=== PATIENT | female | born 1985 | race American Indian/Alaskan Native ===

== ENCOUNTER 2021-09-01 23:46 | Inpatient (IN) | payer SELFPAY ==
--- NOTE | 2021-09-02 07:37 | Emergency Department Report ---
ED General Adult HPI - General Chief complaint: Neuro Symptoms/Deficit Stated complaint: CHF/LEFTSIDE NUMBNESS Time Seen by Provider: 09/02/21 07:26 Source: patient, RN notes reviewed Mode of arrival: Ambulatory Limitations: No Limitations - History of Present Illness Initial comments: During the history and physical examination, I am chaperoned by Vik Tracy This is a 36-year-old female. She states that she is not . She has a history of congestive heart failure, and also pituitary abnormality. She typically sees a cash posting clerk by the name of Dr. Cabral, at [facility]. She does not know her ejection fraction. She presents to the ER today with a complaint of shortness of breath, cough, lower extremity swelling, production of pink frothy sputum, unintentional weight gain, and also complaint of nontraumatic left medial arm numbness, which starts at the elbow, and radiates proximally to her bicep, tricep, and left lateral chest wall. It does not radiate distally. Denies headache, neck pain, chest pain, abdominal pain, DVT/PE risk factors as well as urinary symptoms The subjective numbness started yesterday at around 10:00 PM -: Gradual Location: left, upper extremity Quality: other (Numb in the left upper extremity) Consistency: constant Improves with: rest Worsens with: movement - Related Data Home Medications Medication Instructions Recorded Confirmed Last Taken Benzonatate [Tessalon Perles] 100 mg PO Q8HR 09/02/21 09/02/21 09/01/21 Bromocriptine [Parlodel] 2.5 mg PO DAILY 09/02/21 09/02/21 09/01/21 Furosemide [Lasix] 40 mg PO 09/02/21 09/01/21 Lo Loestrin Fe 1-10 Tablet 09/02/21 09/01/21 Valsartan [Diovan] 160 mg PO QDAY 09/02/21 09/02/21 09/01/21 carvediloL [Coreg] 12.5 mg PO BID 09/02/21 09/02/21 09/01/21 Allergies Allergy/AdvReac Type Severity Reaction Status Date / Time No Known Allergies Allergy Verified 09/02/21 00:48 ED Review of Systems ROS: Stated complaint: CHF/LEFTSIDE NUMBNESS Other details as noted in HPI Constitutional: denies: fever Eyes: denies: eye discharge ENT: congestion Respiratory: orthopnea, shortness of breath, SOB with exertion, SOB at rest Cardiovascular: edema. denies: chest pain Gastrointestinal: denies: abdominal pain, hematemesis, melena, hematochezia Genitourinary: denies: dysuria Musculoskeletal: arthralgia, myalgia Neurological: numbness. denies: weakness ED Past Medical Hx - Past Medical History Previous Medical History?: Yes Hx Congestive Heart Failure: Yes Additional medical history: pPOS - Surgical History Past Surgical History?: Yes Additional Surgical History: HEART CATH FOR BLOOD CLOTS IN THE HEART - Social History Smoking Status: Never Smoker Substance Use Type: None - Medications Home Medications: Home Medications Medication Instructions Recorded Confirmed Last Taken Type Benzonatate [Tessalon Perles] 100 mg PO Q8HR 09/02/21 09/02/21 09/01/21 History Bromocriptine [Parlodel] 2.5 mg PO DAILY 09/02/21 09/02/21 09/01/21 History Furosemide [Lasix] 40 mg PO 09/02/21 09/01/21 History Lo Loestrin Fe 1-10 Tablet 09/02/21 09/01/21 History Valsartan [Diovan] 160 mg PO QDAY 09/02/21 09/02/21 09/01/21 History carvediloL [Coreg] 12.5 mg PO BID 09/02/21 09/02/21 09/01/21 History ED Physical Exam - General Limitations: No Limitations General appearance: alert, anxious, in distress, obese - Head Head exam: Present: atraumatic, normocephalic - Eye Eye exam: Present: normal appearance, EOMI. Absent: nystagmus - ENT ENT exam: Present: normal exam, normal orophraynx, mucous membranes moist, normal external ear exam - Neck Neck exam: Present: normal inspection, full ROM. Absent: tenderness, meningismus - Respiratory Respiratory exam: Present: respiratory distress, rales - Cardiovascular Cardiovascular Exam: Present: normal rhythm, tachycardia, JVD. Absent: bradycardia, irregular rhythm, systolic murmur, diastolic murmur, rubs, gallop - GI/Abdominal GI/Abdominal exam: Present: soft. Absent: distended, tenderness, guarding, rebound, rigid, pulsatile mass - Extremities Exam Extremities exam: Present: normal inspection, full ROM, pedal edema, other (2+ pulses noted in the bilateral upper and lower extremities. There is no palpable cord. negative Homans sign. Muscular compartments are soft. The pelvis is stable.). Absent: calf tenderness - Back Exam Back exam: Present: normal inspection. Absent: tenderness, CVA tenderness (R), CVA tenderness (L), paraspinal tenderness, vertebral tenderness - Neurological Exam Neurological exam: Present: alert, oriented X3, other (My normal neurologic). Absent: motor sensory deficit - Psychiatric Psychiatric exam: Present: anxious - Skin Skin exam: Present: warm, dry, intact, normal color. Absent: rash ED Course Vital Signs 09/02/21 09/02/21 09/02/21 00:43 06:35 06:46 Temperature 97.8 F Pulse Rate 104 H 124 H 120 H Respiratory 18 36 H 45 H Rate Blood Pressure 133/100 Blood Pressure 138/89 [Left] O2 Sat by Pulse 100 99 99 Oximetry 09/02/21 09/02/21 09/02/21 07:00 07:16 07:30 Temperature Pulse Rate 117 H 120 H 122 H Respiratory 40 H 46 H 13 Rate Blood Pressure 135/105 134/100 131/105 Blood Pressure [Left] O2 Sat by Pulse 95 88 99 Oximetry 09/02/21 09/02/21 09/02/21 07:46 08:44 08:46 Temperature Pulse Rate 119 H Respiratory 43 H Rate Blood Pressure 136/101 154/114 154/114 Blood Pressure [Left] O2 Sat by Pulse 98 99 100 Oximetry 09/02/21 09/02/21 09/02/21 09:00 09:16 09:21 Temperature 98.3 F Pulse Rate 121 H Respiratory 18 Rate Blood Pressure 145/102 148/103 Blood Pressure 125/94 [Left] O2 Sat by Pulse 99 100 100 Oximetry 09/02/21 09/02/21 09/02/21 09:30 09:46 10:00 Temperature Pulse Rate Respiratory Rate Blood Pressure 125/94 137/102 139/107 Blood Pressure [Left] O2 Sat by Pulse 99 99 97 Oximetry 09/02/21 09/02/21 09/02/21 10:16 10:30 10:46 Temperature Pulse Rate 118 H 116 H 117 H Respiratory 20 42 H 42 H Rate Blood Pressure 134/102 136/104 135/99 Blood Pressure [Left] O2 Sat by Pulse 98 99 96 Oximetry 09/02/21 09/02/21 11:00 11:56 Temperature Pulse Rate 121 H 121 H Respiratory 26 H Rate Blood Pressure 143/108 135/106 Blood Pressure [Left] O2 Sat by Pulse 100 Oximetry - Reevaluation(s) Reevaluation #1: 09/02/21 08:27 Differential diagnosis, include but not limited to: Peripheral neuropathy, congestive heart failure, electrolyte derangement, thyroid derangement Assessment and plan 36-year-old female presenting with a primary complaint of cough, shortness of breath, pink sputum, with lower extremity edema and tachycardia, suspicious for decompensated congestive heart failure. Has a GCS of 15, with NIH score of 0. Last known well time is greater than 4.5 hours prior to ER presentation, tPA is not indicated. Given NIH score of 0, benign and unremarkable physical exam, does not require emergent CT angiogram head and neck. Currently awaiting laboratory studies and x-ray of the chest. Anticipate need for admission. Reassess 09/02/21 08:28 09/02/21 10:18 Patient resting comfortably in stretcher. Multiple phone calls made to the lab because of delays in resulting laboratory studies. Chest x-ray clear. Given tachycardia and symptoms, check D-dimer. Have also requested that nursing team reconcile home medications. Reassess 09/02/21 11:36 D-dimer is elevated. CT scan of chest obtained. I also reconciled his patient's home medications, and order her medications. Multiple calls have been made by the nurse to the pharmacy, to request these oral medications. We are still waiting for the patient's oral medications to be delivered, and the nurses on the phone with the pharmacy yet again, requesting that these medications be sent up. In addition, should oral medications not return in a timely fashion, will consider administration of intravenous agents. 09/02/21 11:51 Received verbal report from radiologist that patient has multiple pulmonary emboli. They are in the right upper lobe and right lower lobe, segmental and subsegmental. I do not receive verbal report of saddle embolus. Radiologist does not believe that the patient has right-sided heart strain. I discussed this with the patient. She now reports a history of prior PE, and was taken off of her warfarin last year by her outpatient physician. Given evidence of acute pulmonary embolism, with acute decompensated right-sided congestive heart failure, recommend Lovenox, Lasix, and admission to the medical service. Patient denies contraindications to systemic anticoagulation. She is agreeable to admission and hospitalization. Hospital physician, Dr. Leyva, to admit patient to the medical service. Request consultation from vascular surgery and cardiology. Have placed pages, awaiting callback. Medical decision makin-year-old female with decompensated right-sided congestive heart failure, and symptomatic multiple pulmonary emboli, requires admission to the medical service for initiation of anticoagulation, diuresis, and urgent subspecialty consultation. 09/02/21 11:57 Discussed the patient's history, physical, laboratory studies imaging studies, EKG findings and overall clinical impression with cardiology on-call, Dr. Nora Cash He is in agreement with the plan of care, and indicates that [facility] cardiology will follow in consultation. Requests echocardiogram. I will convey this to the inpatient team, and defer to the inpatient team to order - Consultations Consultation #1: 09/02/21 12:03 Discussed the patient's history, physical, laboratory studies and imaging studies and clinical impression with vascular surgery on-call, Dr. Montoya. He is in agreement with the plan of care, and indicates that vascular surgery will follow in consultation. We both agree that this patient does not require emergent activation of the catheterization lab, or EKOS therapy at this time ED Medical Decision Making - Lab Data Result diagrams: 09/02/21 08:45 09/02/21 08:57 Vital Signs 09/02/21 00:43 Temperature 97.8 F Pulse Rate 104 H Respiratory 18 Rate Blood Pressure 138/89 [Left] O2 Sat by Pulse 100 Oximetry Lab Results 09/02/21 09/02/21 09/02/21 Range/Units 08:45 08:45 08:45 WBC 9.2 (4.5-11.0) K/mm3 RBC 4.53 (3.65-5.03) M/mm3 Hgb 11.6 (10.1-14.3) gm/dl Hct 35.5 (30.3-42.9) % MCV 78 L (79-97) fl MCH 26 L (28-32) pg MCHC 33 (30-34) % RDW 15.6 H (13.2-15.2) % Plt Count 338 (140-440) K/mm3 Lymph % (Auto) 19.1 (13.4-35.0) % [place] % (Auto) 9.9 H (0.0-7.3) % Eos % (Auto) 0.6 (0.0-4.3) % Baso % (Auto) 0.9 (0.0-1.8) % Lymph # (Auto) 1.8 (1.2-5.4) K/mm3 [place] # (Auto) 0.9 H (0.0-0.8) K/mm3 Eos # (Auto) 0.1 (0.0-0.4) K/mm3 Baso # (Auto) 0.1 (0.0-0.1) K/mm3 Seg Neutrophils % 69.5 (40.0-70.0) % Seg Neutrophils # 6.4 (1.8-7.7) K/mm3 PT 16.1 H (12.2-14.9) Sec. INR 1.16 H (0.87-1.13) APTT 28.9 (24.2-36.6) Sec. Thrombin Time 14.8 L (15.1-19.6) Sec. D-Dimer (0-234) ng/mlDDU Sodium (137-145) mmol/L Potassium (3.6-5.0) mmol/L Chloride (98-107) mmol/L Carbon Dioxide (22-30) mmol/L Anion Gap mmol/L BUN (7-17) mg/dL Creatinine (0.6-1.2) mg/dL Estimated GFR ml/min BUN/Creatinine Ratio % Glucose (65-100) mg/dL Calcium (8.4-10.2) mg/dL Magnesium (1.7-2.3) mg/dL Total Bilirubin (0.1-1.2) mg/dL AST (5-40) units/L ALT (7-56) units/L Alkaline Phosphatase (35-129) units/L Total Creatine Kinase 87 (30-135) units/L CK-MB (CK-2) 1.1 (0.0-4.0) ng/mL CK-MB (CK-2) Rel Index 1.2 (0-4) Troponin T < 0.010 (0.00-0.029) ng/mL NT-Pro-B Natriuret Pep (0-450) pg/mL Total Protein (6.3-8.2) g/dL Albumin (3.9-5) g/dL Albumin/Globulin Ratio % 09/02/21 09/02/21 Range/Units 08:57 08:57 WBC (4.5-11.0) K/mm3 RBC (3.65-5.03) M/mm3 Hgb (10.1-14.3) gm/dl Hct (30.3-42.9) % MCV (79-97) fl MCH (28-32) pg MCHC (30-34) % RDW (13.2-15.2) % Plt Count (140-440) K/mm3 Lymph % (Auto) (13.4-35.0) % [place] % (Auto) (0.0-7.3) % Eos % (Auto) (0.0-4.3) % Baso % (Auto) (0.0-1.8) % Lymph # (Auto) (1.2-5.4) K/mm3 [place] # (Auto) (0.0-0.8) K/mm3 Eos # (Auto) (0.0-0.4) K/mm3 Baso # (Auto) (0.0-0.1) K/mm3 Seg Neutrophils % (40.0-70.0) % Seg Neutrophils # (1.8-7.7) K/mm3 PT (12.2-14.9) Sec. INR (0.87-1.13) APTT (24.2-36.6) Sec. Thrombin Time (15.1-19.6) Sec. D-Dimer 1302.53 H (0-234) ng/mlDDU Sodium 138 (137-145) mmol/L Potassium 4.0 (3.6-5.0) mmol/L Chloride 102.6 (98-107) mmol/L Carbon Dioxide 22 (22-30) mmol/L Anion Gap 17 mmol/L BUN 14 (7-17) mg/dL Creatinine 1.0 (0.6-1.2) mg/dL Estimated GFR > 60 ml/min BUN/Creatinine Ratio 14 % Glucose 108 H (65-100) mg/dL Calcium 8.8 (8.4-10.2) mg/dL Magnesium 2.10 (1.7-2.3) mg/dL Total Bilirubin 1.30 H (0.1-1.2) mg/dL AST 46 H (5-40) units/L ALT 77 H (7-56) units/L Alkaline Phosphatase 79 (35-129) units/L Total Creatine Kinase (30-135) units/L CK-MB (CK-2) (0.0-4.0) ng/mL CK-MB (CK-2) Rel Index (0-4) Troponin T (0.00-0.029) ng/mL NT-Pro-B Natriuret Pep 96992 H (0-450) pg/mL Total Protein 6.3 (6.3-8.2) g/dL Albumin 3.6 L (3.9-5) g/dL Albumin/Globulin Ratio 1.3 % - EKG Data -: EKG Interpreted by Me Rate: tachycardia - EKG Data When compared to previous EKG there are: previous EKG unavailable 09/02/21 08:26 The EKG is interpreted at 07: 35 Sinus rhythm, tachycardia, rate 120 bpm. Normal axis, normal P wave axis, QTC prolonged, 4 9 8 ms, this is an abnormal EKG, this is not a STEMI. There is no prior for comparison. - Radiology Data Radiology results: pending, report reviewed, image reviewed CT head without contrast INDICATION : Left hand numbness. TECHNIQUE: Axial imaging performed from the skull apex through the skull base without the use of contrast. All CT examinations performed at this facility utilize dose modulation, iterative reconstruction or weight-based dosing, when appropriate, to reduce radiation dose to as low as reasonably achievable. COMPARISON: None FINDINGS: No acute intracranial hemorrhage or parenchymal abnormality. Ventricles are normal in size and appear symmetric. Soft tissues including the orbits appear normal. No acute osseous abnormality. Sinuses and mastoid air cells are clear. IMPRESSION: No acute abnormality. Signer Name: Gm Yañez MD Signed: 09/02/2021 7:16 AM Workstation Name: [email or web address] CT head without contrast INDICATION : Left hand numbness. TECHNIQUE: Axial imaging performed from the skull apex through the skull base without the use of contrast. All CT examinations performed at this facility utilize dose modulation, iterative reconstruction or weight-based dosing, when appropriate, to reduce radiation dose to as low as reasonably achievable. COMPARISON: None FINDINGS: No acute intracranial hemorrhage or parenchymal abnormality. Ventricles are normal in size and appear symmetric. Soft tissues including the orbits appear normal. No acute osseous abnormality. Sinuses and mastoid air cells are clear. IMPRESSION: No acute abnormality. Signer Name: Gm Yañez MD Signed: 09/02/2021 7:16 AM Workstation Name: [email or web address] CHEST 1 VIEW INDICATION / CLINICAL INFORMATION: dyspnea cxhf. FINDINGS: SUPPORT DEVICES: None. HEART / MEDIASTINUM: Cardiomegaly. LUNGS / PLEURA: No significant pulmonary or pleural abnormality. No pneumothorax. ADDITIONAL FINDINGS: No significant additional findings. IMPRESSION: 1. No acute findings. Signer Name: Gm Yañez MD Signed: 09/02/2021 7:47 AM Workstation Name: [email or web address] CTA CHEST WITH IV CONTRAST INDICATION: dyspnea tachycardia. Pulmonary thromboembolus TECHNIQUE: Axial CT images were obtained through the chest after injection of 100 mL Omnipaque 300 IV contrast. 3 plane MIP reconstructions were produced. All CT scans at this location are performed using CT dose reduction for ALARA by means of automated exposure control. COMPARISON: None available. FINDINGS: PULMONARY ARTERIES: Acute pulmonary thromboembolus identified within a segmental and subsegmental branch of the right lower lobe as well as the right upper lobe. AORTA AND ARTERIES: No acute abnormality. MEDIASTINUM: Cardiomegaly, mild to moderate the left ventricle is dilated and there is bowing from the left ventricle to the right ventricle. LUNGS: Moderate right pleural effusion. Some ill-defined groundglass densities within both lower lungs, nonspecific ADDITIONAL FINDINGS: Enlarged multinodular nodular goiter of the thyroid.. UPPER ABDOMEN: No acute findings. BONES: No significant osseous abnormality. IMPRESSION: Acute pulmonary thromboembolus identified within the right lower lobe and right upper lobe, as above. Moderate right pleural effusion. No definite evidence of right ventricular strain at this time. CRITICAL RESULT: Acute PTE right lower/upper lobe segmental and subsegmental branches Time of Discovery: 10:40 AM on 09/02/2021 Time of Communication: 10:43 AM on 09/02/2021 Licensed Practitioner Receiving Report: Dr. Lopes Read Back Performed: Yes. Signer Name: Gm Yañez MD Signed: 09/02/2021 10:48 AM Workstation Name: [email or web address] Critical Care Time: Yes Critical care time in (mins) excluding proc time.: 35 Critical care attestation.: If time is entered above; I have spent that time in minutes in the direct care of this critically ill patient, excluding procedure time. ED Disposition Clinical Impression: Acute congestive heart failure, Left upper extremity numbness, Dyspnea, Multiple pulmonary emboli Disposition: ADMITTED INPATIENT Is pt being admited?: Yes Does the pt Need Aspirin: No Condition: Serious [facility]errals: [facility] [Other] - 3-5 Days
--- NOTE | 2021-09-02 08:20 | Cat Scan Report ---
CT head without contrast INDICATION : Left hand numbness. TECHNIQUE: Axial imaging performed from the skull apex through the skull base without the use of con trast. All CT examinations performed at this facility utilize dose modulation, iterative reconstruct ion or weight-based dosing, when appropriate, to reduce radiation dose to as low as reasonably achiev able. COMPARISON: None FINDINGS: No acute intracranial hemorrhage or parenchymal abnormality. Ventricles are normal in si ze and appear symmetric. Soft tissues including the orbits appear normal. No acute osseous abnorm ality. Sinuses and mastoid air cells are clear. IMPRESSION: No acute abnormality. Signer Name: Gm Yañez MD Signed: 09/02/2021 8:16 AM Workstation Name: [email or web address]
--- NOTE | 2021-09-02 08:52 | XRay Report ---
CHEST 1 VIEW INDICATION / CLINICAL INFORMATION: dyspnea cxhf. FINDINGS: SUPPORT DEVICES: None. HEART / MEDIASTINUM: Cardiomegaly. LUNGS / PLEURA: No significant pulmonary or pleural abnormality. No pneumothorax. ADDITIONAL FINDINGS: No significant additional findings. IMPRESSION: 1. No acute findings. Signer Name: Gm Yañez MD Signed: 09/02/2021 8:47 AM Workstation Name: [email or web address]
[2021-09-02 09:28] LABS: Basophils # (Auto) 0.1 K/mm3 (0.0-0.1); Basophils % (Auto) 0.9 % (0.0-1.8); Eosinophils # (Auto) 0.1 K/mm3 (0.0-0.4); Eosinophils % (Auto) 0.6 % (0.0-4.3); Hematocrit 35.5 % (30.3-42.9); Hemoglobin 11.6 gm/dl (10.1-14.3); Lymphocytes # (Auto) 1.8 K/mm3 (1.2-5.4); Lymphocytes % (Auto) 19.1 % (13.4-35.0); Mean Corpuscular HGB Conc 33 % (30-34); Mean Corpuscular Volume 78 fl (79-97); Monocytes # (Auto) 0.9 K/mm3 (0.0-0.8); Monocytes % (Auto) 9.9 % (0.0-7.3); Platelet Count 338 K/mm3 (140-440); Red Blood Count 4.53 M/mm3 (3.65-5.03); Red Cell Distribution Width 15.6 % (13.2-15.2)
[2021-09-02 09:37] LABS: INR 1.16 (0.87-1.13)
[2021-09-02 09:38] LABS: Partial Thromboplastin Time 28.9 Sec. (24.2-36.6); Thrombin Time 14.8 Sec. (15.1-19.6)
[2021-09-02 10:14] LABS: Creatine Kinase MB 1.1 ng/mL (0.0-4.0)
[2021-09-02] MEDS ORDERED: FUROSEMIDE 40 MG TAB PO STA (10:19)
[2021-09-02] MEDS ORDERED: LO LOESTRIN FE PO STA (10:19)
[2021-09-02 10:31] LABS: Alanine Aminotransferase 77 units/L (7-56); Albumin 3.6 g/dL (3.9-5); BUN/Creatinine Ratio 14; Blood Urea Nitrogen 14 mg/dL (7-17); Calcium 8.8 mg/dL (8.4-10.2); Hemolysis Index 6
[2021-09-02] MEDS ORDERED: ENOXAPARIN 100 MG/1 ML INJ SUB-Q STA (11:49)
[2021-09-02] MEDS ORDERED: FUROSEMIDE 40 MG/4 ML INJ IV ONE (11:49)
--- NOTE | 2021-09-02 11:52 | Cat Scan Report ---
CTA CHEST WITH IV CONTRAST INDICATION: dyspnea tachycardia. Pulmonary thromboembolus TECHNIQUE: Axial CT images were obtained through the chest after injection of 100 mL Omnipaque 300 IV contrast. 3 plane MIP reconstructions were produced. All CT scans at this location are performed using CT dose reduction for ALARA by means of automated exposure control. COMPARISON: None available. FINDINGS: PULMONARY ARTERIES: Acute pulmonary thromboembolus identified within a segmental and subsegmental bra nch of the right lower lobe as well as the right upper lobe. AORTA AND ARTERIES: No acute abnormality. MEDIASTINUM: Cardiomegaly, mild to moderate the left ventricle is dilated and there is bowing from th e left ventricle to the right ventricle. LUNGS: Moderate right pleural effusion. Some ill-defined lili undglass densities within both lower lungs, nonspecific ADDITIONAL FINDINGS: Enlarged multinodular nodular goiter of the thyroid.. UPPER ABDOMEN: No acute findings. BONES: No significant osseous abnormality. IMPRESSION: Acute pulmonary thromboembolus identified within the right lower lobe and right upper lobe, as above. Moderate right pleural effusion. No definite evidence of right ventricular strain at this time. CRITICAL RESULT: Acute PTE right lower/upper lobe segmental and subsegmental branches Time of Discovery: 10:40 AM on 09/02/2021 Time of Communication: 10:43 AM on 09/02/2021 Licensed Practitioner Receiving Report: Dr. Lopes Read Back Performed: Yes. Signer Name: Gm Yañez MD Signed: 09/02/2021 11:48 AM Workstation Name: [email or web address]
[2021-09-02] MEDS: VALSARTAN 160MG TAB PO SCH (11:56)
[2021-09-02] MEDS: carvediloL 12.5 MG TAB PO SCH ×2 (11:57→21:45)
[2021-09-02] MEDS: BROMOCRIPTINE 2.5 MG TAB PO SCH (11:57)
--- NOTE | 2021-09-02 13:01 | History and Physical Report ---
History of Present Illness Chief complaint: I cannot breathe, I am swollen, I am coughing, and my left arm gets numb sometimes History of present illness: 36 YO Female with Obesity Hypoventilation Syndrome, CHF, Pituitary Adenoma, Intracardiac Thrombus, PCOS presents to ED for evaluation. Pt reports " I cannot breathe, I am swollen, and I am coughing". Patient states that she has experienced shortness of breath, dry cough, leg swelling, 15 pound unintentional weight gain over the past 2 weeks, dyspnea on exertion, dyspnea at rest, decreased exercise tolerance, chest discomfort with deep breathing, orthopnea, paroxysmal nocturnal dyspnea. Patient also reports numbness in the left arm over the past 3 weeks. Patient transported to [facility] via private vehicle for further care and evaluation of the aforementioned symptoms. The patient was seen and evaluated in the emergency department. All lab and imaging studies reviewed. Patient found to have a pulse oximetry of 88% with exertion with is consistent with acute hypoxemic respiratory failure. Patient underwent CTA of the chest and was found to have bilobar pulmonary emboli complicated by pleural effusions. Patient also found to have clinical symptoms consistent with CHF decompensation. Patient initiated on therapeutic anticoagulation and admitted to telemetry and initiated on CHF protocol. Cardiology team consulted in ED. Patient denies fever, chills, chest pain, palpitation, productive cough, skin rash, unilateral leg swelling, calf pain, prolonged travel/immobility, or known exposure to COVID-19. No prior admission for review. All medication listed at time of admission has been reconciled. Advanced care planning conducted in ED. Past History Past Medical History: heart failure, other (See HPI) Past Surgical History: Other (Cardiac cath) Social history: single. denies: smoking, alcohol abuse, prescription drug abuse Family history: hypertension Medications and Allergies Allergies Allergy/AdvReac Type Severity Reaction Status Date / Time No Known Allergies Allergy Verified 09/02/21 00:48 Home Medications Medication Instructions Recorded Confirmed Last Taken Type Benzonatate [Tessalon Perles] 100 mg PO Q8HR 09/02/21 09/02/21 09/01/21 History Bromocriptine [Parlodel] 2.5 mg PO DAILY 09/02/21 09/02/21 09/01/21 History Furosemide [Lasix] 40 mg PO 09/02/21 09/01/21 History Lo Loestrin Fe 1-10 Tablet 09/02/21 09/01/21 History Valsartan [Diovan] 160 mg PO QDAY 09/02/21 09/02/21 09/01/21 History carvediloL [Coreg] 12.5 mg PO BID 09/02/21 09/02/21 09/01/21 History Active Meds: Active Medications Bromocriptine Mesylate (Bromocriptine 2.5 Mg Tab) 2.5 mg PO DAILY [facility] Last Admin: 09/02/21 11:57 Dose: 2.5 mg Carvedilol (Carvedilol 12.5 Mg Tab) 12.5 mg PO BID [facility] Last Admin: 09/02/21 11:57 Dose: 12.5 mg Miscellaneous Medication (Lo Loestrin Fe 1-10 Tablet) 1 tab PO NOW STA Stop: 09/02/21 10:20 Last Admin: 09/02/21 10:52 Dose: Not Given Valsartan (Valsartan 160mg Tab) 160 mg PO QDAY [facility] Last Admin: 09/02/21 11:56 Dose: 160 mg Review of Systems Constitutional: weight gain, no weight loss, no fever, no chills Ears, nose, mouth and throat: no ear pain, no ear discharge, no tinnitis, no decreased hearing, no nose pain Breasts: no change in shape, no swelling, no mass Cardiovascular: orthopnea, shortness of breath, dyspnea on exertion, paroxysmal nocturnal dyspnea, leg edema, decreased exercise tolerance Respiratory: cough, shortness of breath, no hemoptysis Gastrointestinal: no nausea, no vomiting, no diarrhea, no constipation Genitourinary Female: no pelvic pain, no flank pain, no dysuria, no urinary frequency, no urgency Rectal: no pain, no incontinence, no bleeding Musculoskeletal: no neck stiffness, no neck pain, no shooting arm pain, no arm numbness/tingling, no low back pain, no shooting leg pain, no leg numbness/tingling Integumentary: no rash, no pruritis, no redness, no sores, no wounds, no jaundice, no boils Neurological: no head injury, no paralysis, no weakness, no numbness, no tingling, no seizures, no tremors Psychiatric: no anxiety, no change in sleep habits, no sleep disturbances, no hypersomnia Endocrine: no cold intolerance, no polydipsia, no polyuria, no nocturia, no flushing Hematologic/Lymphatic: no easy bruising, no easy bleeding, no lymphedema Allergic/Immunologic: no urticaria, no persistent infections Exam - Constitutional Vitals: Temp Pulse Resp BP Pulse Ox 98.3 F 121 H 26 H 135/106 100 09/02/21 09:21 09/02/21 11:56 09/02/21 11:00 09/02/21 11:56 09/02/21 11:00 General appearance: Present: mild distress, obese - EENT Eyes: Present: PERRL ENT: hearing intact, clear oral mucosa - Neck Neck: Present: supple, normal ROM - Respiratory Respiratory effort: labored, accessory muscle use Respiratory: bilateral: diminished, rhonchi - Cardiovascular Heart Sounds: Present: S1 & S2. Absent: rub, click - Extremities Extremities: pulses symmetrical, No edema Peripheral Pulses: within normal limits - Abdominal General gastrointestinal: Present: soft, non-tender, non-distended, normal bowel sounds Female genitourinary: Present: normal - Integumentary Integumentary: Present: clear, warm, dry - Musculoskeletal Musculoskeletal: generalized weakness - Psychiatric Psychiatric: appropriate mood/affect, intact judgment & insight - Neurologic Neurologic: CNII-XII intact, moves all extremities HEART Score - HEART Score Troponin: Troponin T < 0.010 ng/mL (0.00-0.029) 09/02/21 08:45 Results - Labs CBC & Chem 7: 09/02/21 08:45 09/02/21 08:57 Labs: Abnormal lab results 09/02/21 09/02/21 09/02/21 Range/Units 08:45 08:45 08:57 MCV 78 L (79-97) fl MCH 26 L (28-32) pg RDW 15.6 H (13.2-15.2) % [place] % (Auto) 9.9 H (0.0-7.3) % [place] # (Auto) 0.9 H (0.0-0.8) K/mm3 PT 16.1 H (12.2-14.9) Sec. INR 1.16 H (0.87-1.13) Thrombin Time 14.8 L (15.1-19.6) Sec. D-Dimer (0-234) ng/mlDDU Glucose 108 H (65-100) mg/dL POC Glucose (70-105) mg/dL Total Bilirubin 1.30 H (0.1-1.2) mg/dL AST 46 H (5-40) units/L ALT 77 H (7-56) units/L NT-Pro-B Natriuret Pep 95593 H (0-450) pg/mL Albumin 3.6 L (3.9-5) g/dL 09/02/21 09/02/21 Range/Units 08:57 09:20 MCV (79-97) fl MCH (28-32) pg RDW (13.2-15.2) % [place] % (Auto) (0.0-7.3) % [place] # (Auto) (0.0-0.8) K/mm3 PT (12.2-14.9) Sec. INR (0.87-1.13) Thrombin Time (15.1-19.6) Sec. D-Dimer 1302.53 H (0-234) ng/mlDDU Glucose (65-100) mg/dL POC Glucose 120 H (70-105) mg/dL Total Bilirubin (0.1-1.2) mg/dL AST (5-40) units/L ALT (7-56) units/L NT-Pro-B Natriuret Pep (0-450) pg/mL Albumin (3.9-5) g/dL Assessment and Plan - Patient Problems (1) Acute hypoxemic respiratory failure Current Visit: Yes Status: Acute Plan to address problem: Chest x-ray, supplemental oxygen, CTA of the chest, D-dimer, pulse oximetry, nebulizer therapy, pulmonary toilet. Noninvasive positive pressure ventilation as clinical indicated. (2) Acute congestive heart failure Current Visit: Yes Status: Suspected Plan to address problem: Strict I's/O, monitor urine output every shift, daily weight, afterload reduction, blood pressure control, supplemental oxygen, pulse oximetry, chest x- ray, BNP, (3) Pulmonary emboli Current Visit: Yes Status: Acute Qualifiers: Pulmonary embolism type: multiple subsegmental (without acute cor pulmonale) Qualified Code(s): I26.94 - Multiple subsegmental pulmonary emboli without acute cor pulmonale Plan to address problem: CTA chest, therapeutic anticoagulation, echocardiogram ordered and pending at time of admission, (4) Obesity hypoventilation syndrome Current Visit: Yes Status: Acute Plan to address problem: Balanced diet, increase physical activity discharge, outpatient pulmonary follow-up for sleep study. (5) DVT prophylaxis Current Visit: Yes Status: Acute Plan to address problem: SCD to bilateral lower extremities while in bed, continue therapeutic anticoagulation (6) PCOS (polycystic ovarian syndrome) Current Visit: Yes Status: Acute Plan to address problem: Continue medical management, outpatient P[employer] follow-up. (7) Advance care planning Current Visit: Yes Status: Acute Plan to address problem: Disease education data, care plan discussed, diagnoses discussed, prognosis discussed, patient is full code. Patient acknowledges understanding and agreement with care plan, +30 minutes. (8) Preventative health care Current Visit: Yes Status: Acute Plan to address problem: Patient counseled regarding increase physical activity discharge, balanced diet, meal planning,
[2021-09-02] MEDS ORDERED: ALBUTEROL 2.5 MG/3 ML NEBU IH PRN (13:02)
[2021-09-02] MEDS ORDERED: ONDANSETRON 4 MG/2 ML INJ IV PRN (13:02)
[2021-09-02] MEDS ORDERED: ACETAMINOPHEN 325 MG TAB PO PRN (13:02)
[2021-09-02] MEDS ORDERED: HYDROmorphone 1 MG/1 ML INJ IV PRN (13:02)
[2021-09-02] MEDS ORDERED: oxyCODONE /ACETAMINOPHEN 5-325MG TAB PO PRN (13:02)
[2021-09-02] MEDS: APIXABAN 5 MG TAB PO SCH (21:45)
[2021-09-03 00:24] LABS: Hematocrit 37.3 % (30.3-42.9); Hemoglobin 11.7 gm/dl (10.1-14.3); Mean Corpuscular HGB Conc 31 % (30-34); Mean Corpuscular Volume 79 fl (79-97); Platelet Count 327 K/mm3 (140-440); Red Blood Count 4.74 M/mm3 (3.65-5.03)
[2021-09-03 00:32] LABS: INR 1.24 (0.87-1.13)
--- NOTE | 2021-09-03 08:22 | Progress Note ---
Assessment and Plan Assessment and plan: #Acute hypoxemic respiratory failure-resolved -patient weaned to RA -elevated d-dimer, CTA showed PEs in R systems -likely secondary to acute PE -continue pulse oximetry #Acute on chronic Heart failure with combined preserved and reduced ejection fraction -BNP 19037 -TTE 09/03: EF 10-15% -Lifevest to be ordered -continue lasix, coreg and valsartan -Cardiology consulted, assistance appreciated -strict I's/O, monitor urine output every shift, daily weight, afterload reduction, blood pressure control #Subsegmental pulmonary emboli -CT angio of the chest showed cute PTE within the right upper and lower lobe segmental and subsegmental branches -echoardiogram shows no evidence of right heart strain -patient has previous history of DVT and was on warfarin in the past -will d/c apixaban and start warfarin for pharmacy to dose and will use subcutaneous lovenox for bridging -Vascular surgery consulted, assistance appreciated #Obesity hypoventilation syndrome -Balanced diet, increase physical activity discharge, outpatient pulmonary follow-up for sleep study. #PCOS (polycystic ovarian syndrome) -stable, patient takes OTC OCPs -outpatient NURSE TECHNICIAN follow-up #Advanced care planning -Disease education conducted, care plan discussed, diagnoses discussed, prognosis discussed, and patient acknowledges understanding with care plan -Time: +30 min History Interval history: No acute events overnight. Patient reports feeling better since admission. Denies current chest pain, palpitations, shortness of breath, PND/orthopnea. Hospitalist Physical - Physical exam Narrative exam: GENERAL: Well-developed well-nourished. Sitting on the side of the bed in no acute distress. HEENT: Normocephalic. Atraumatic. NECK: Supple. CHEST/LUNGS: CTAB on room air HEART/CARDIOVASCULAR: RRR. No murmur, rubs or gallops appreciated. ABDOMEN: +BS. NT/ND. SKIN: No rashes noted. NEURO: No focal motor deficit. Follows all commands. MUSCULOSKELETAL: No joint effusion EXTREMITIES: No cyanosis, clubbing or edema. PSYCH: Cooperative. - Constitutional Vitals: Temp Pulse Resp BP Pulse Ox 97.6 F 88 14 109/80 98 09/03/21 07:40 09/03/21 07:40 09/03/21 07:40 09/03/21 07:40 09/03/21 07:40 General appearance: Present: mild distress, obese HEART Score - HEART Score Troponin: Troponin T < 0.010 ng/mL (0.00-0.029) 09/02/21 08:45 Results - Labs CBC & Chem 7: 09/03/21 08:01 09/03/21 08:01 Labs: Laboratory Last Values WBC 8.7 K/mm3 (4.5-11.0) 09/02/21 23:48 RBC 4.74 M/mm3 (3.65-5.03) 09/02/21 23:48 Hgb 11.7 gm/dl (10.1-14.3) 09/02/21 23:48 Hct 37.3 % (30.3-42.9) 09/02/21 23:48 MCV 79 fl (79-97) 09/02/21 23:48 MCH 25 pg (28-32) L 09/02/21 23:48 MCHC 31 % (30-34) 09/02/21 23:48 RDW 16.0 % (13.2-15.2) H 09/02/21 23:48 Plt Count 327 K/mm3 (140-440) 09/02/21 23:48 Lymph % (Auto) 19.1 % (13.4-35.0) 09/02/21 08:45 Johnston % (Auto) 9.9 % (0.0-7.3) H 09/02/21 08:45 Eos % (Auto) 0.6 % (0.0-4.3) 09/02/21 08:45 Baso % (Auto) 0.9 % (0.0-1.8) 09/02/21 08:45 Lymph # (Auto) 1.8 K/mm3 (1.2-5.4) 09/02/21 08:45 Johnston # (Auto) 0.9 K/mm3 (0.0-0.8) H 09/02/21 08:45 Eos # (Auto) 0.1 K/mm3 (0.0-0.4) 09/02/21 08:45 Baso # (Auto) 0.1 K/mm3 (0.0-0.1) 09/02/21 08:45 Seg Neutrophils % 69.5 % (40.0-70.0) 09/02/21 08:45 Seg Neutrophils # 6.4 K/mm3 (1.8-7.7) 09/02/21 08:45 PT 17.1 Sec. (12.2-14.9) H 09/02/21 23:48 INR 1.24 (0.87-1.13) H 09/02/21 23:48 APTT 35.0 Sec. (24.2-36.6) 09/02/21 23:48 Thrombin Time 14.8 Sec. (15.1-19.6) L 09/02/21 08:45 D-Dimer 1302.53 ng/mlDDU (0-234) H 09/02/21 08:57 Sodium 138 mmol/L (137-145) 09/02/21 08:57 Potassium 4.0 mmol/L (3.6-5.0) 09/02/21 08:57 Chloride 102.6 mmol/L (98-107) 09/02/21 08:57 Carbon Dioxide 22 mmol/L (22-30) 09/02/21 08:57 Anion Gap 17 mmol/L 09/02/21 08:57 BUN 14 mg/dL (7-17) 09/02/21 08:57 Creatinine 1.1 mg/dL (0.6-1.2) 09/02/21 23:48 Estimated GFR > 60 ml/min 09/02/21 23:48 BUN/Creatinine Ratio 14 % 09/02/21 08:57 Glucose 108 mg/dL (65-100) H 09/02/21 08:57 POC Glucose 120 mg/dL (70-105) H 09/02/21 09:20 Calcium 8.8 mg/dL (8.4-10.2) 09/02/21 08:57 Magnesium 2.10 mg/dL (1.7-2.3) 09/02/21 08:57 Total Bilirubin 1.30 mg/dL (0.1-1.2) H 09/02/21 08:57 AST 46 units/L (5-40) H 09/02/21 08:57 ALT 77 units/L (7-56) H 09/02/21 08:57 Alkaline Phosphatase 79 units/L (35-129) 09/02/21 08:57 Total Creatine Kinase 87 units/L (30-135) 09/02/21 08:45 CK-MB (CK-2) 1.1 ng/mL (0.0-4.0) 09/02/21 08:45 CK-MB (CK-2) Rel Index 1.2 (0-4) 09/02/21 08:45 Troponin T < 0.010 ng/mL (0.00-0.029) 09/02/21 08:45 NT-Pro-B Natriuret Pep 53908 pg/mL (0-450) H 09/02/21 08:57 Total Protein 6.3 g/dL (6.3-8.2) 09/02/21 08:57 Albumin 3.6 g/dL (3.9-5) L 09/02/21 08:57 Albumin/Globulin Ratio 1.3 % 09/02/21 08:57 TSH 2.270 mlU/mL (0.270-4.200) 09/02/21 08:57 HCG, Quant < 2 mIU/mL (0-4) 09/02/21 08:57 Active Medications - Current Medications Current Medications: Generic Name Dose Route Start Last Admin Trade Name Freq PRN Reason Stop Dose Admin Acetaminophen 650 mg 09/02/21 13:02 Acetaminophen 325 Mg Tab PO Q4H PRN Pain MILD(1-3)/Fever >100.5/ROSS Albuterol 2.5 mg 09/02/21 13:02 Albuterol 2.5 Mg/3 Ml Nebu IH Q4HRT PRN Shortness Of Breath Apixaban 10 mg 09/02/21 22:00 09/02/21 21:45 Apixaban 5 Mg Tab PO 09/09/21 10:01 10 mg Q12HR SCOOBY Administration Protocol Bromocriptine Mesylate 2.5 mg 09/02/21 11:00 09/02/21 11:57 Bromocriptine 2.5 Mg Tab PO 2.5 mg DAILY SCOOBY Administration Carvedilol 12.5 mg 09/02/21 11:00 09/02/21 21:45 Carvedilol 12.5 Mg Tab PO 12.5 mg BID SCOOBY Administration Hydromorphone HCl 0.5 mg 09/02/21 13:02 Hydromorphone 1 Mg/1 Ml Inj IV Q13H PRN Pain , Severe (7-10) Ondansetron HCl 4 mg 09/02/21 13:02 Ondansetron 4 Mg/2 Ml Inj IV Q8H PRN Nausea And Vomiting Oxycodone/Acetaminophen 1 tab 09/02/21 13:02 Oxycodone /Acetaminophen 5-325mg Tab PO Q6H PRN Pain, Moderate (4-6) Sodium Chloride 10 ml 09/02/21 22:00 09/02/21 21:45 Sodium Chloride 0.9% 10 Ml Flush Syringe IV 10 ml BID SCOOBY Administration Sodium Chloride 10 ml 09/02/21 13:02 Sodium Chloride 0.9% 10 Ml Flush Syringe IV PRN PRN LINE FLUSH Valsartan 160 mg 09/02/21 11:00 09/02/21 11:56 Valsartan 160mg Tab PO 160 mg QDAY [facility] Administration
[2021-09-03 08:50] LABS: Basophils # (Auto) 0.1 K/mm3 (0.0-0.1); Basophils % (Auto) 0.8 % (0.0-1.8); Eosinophils # (Auto) 0.3 K/mm3 (0.0-0.4); Eosinophils % (Auto) 4.3 % (0.0-4.3); Hematocrit 35.3 % (30.3-42.9); Hemoglobin 11.3 gm/dl (10.1-14.3); Lymphocytes % (Auto) 26.1 % (13.4-35.0); Mean Corpuscular HGB Conc 32 % (30-34); Mean Corpuscular Volume 79 fl (79-97); Monocytes # (Auto) 0.8 K/mm3 (0.0-0.8); Monocytes % (Auto) 10.8 % (0.0-7.3); Platelet Count 315 K/mm3 (140-440); Red Blood Count 4.47 M/mm3 (3.65-5.03); Red Cell Distribution Width 15.6 % (13.2-15.2)
[2021-09-03 09:06] LABS: BUN/Creatinine Ratio 11; Blood Urea Nitrogen 12 mg/dL (7-17); Calcium 8.3 mg/dL (8.4-10.2); Hemolysis Index 3
[2021-09-03] MEDS: VALSARTAN 160MG TAB PO SCH (09:50)
[2021-09-03] MEDS: carvediloL 12.5 MG TAB PO SCH ×2 (09:57→21:36)
[2021-09-03] MEDS: APIXABAN 5 MG TAB PO SCH (09:58)
--- NOTE | 2021-09-03 11:33 | Consultation ---
History of Present Illness - Reason for Consult Consult date: 09/03/21 PE Requesting physician: ALEJANDRA MISTRY - History of Present Illness 36 YO female with Obesity Hypoventilation Syndrome, CHF, Pituitary Adenoma, Intracardiac Thrombus, PCOS presents to ED for evaluation. Pt reports " I cannot breathe, I am swollen, and I am coughing". Patient states that she has experienced shortness of breath, dry cough, leg swelling, 15 pound unintentional weight gain over the past 2 weeks, dyspnea on exertion, dyspnea at rest, decreased exercise tolerance, chest discomfort with deep breathing, orthopnea, paroxysmal nocturnal dyspnea. Patient also reports numbness in the left arm over the past 3 weeks. Patient transported to [facility] via private vehicle for further care and evaluation of the aforementioned symptoms. The patient was seen and evaluated in the emergency department. All lab and imaging studies reviewed. Patient found to have a pulse oximetry of 88% with exertion with is consistent with acute hypoxemic respiratory failure. Patient underwent CTA of the chest and was found to have bilobar pulmonary emboli complicated by pleural effusions. Patient also found to have clinical symptoms consistent with CHF decompensation. Patient initiated on therapeutic anticoagulation and admitted to telemetry and initiated on CHF protocol. Cardiology team consulted in ED. Patient denies fever, chills, chest pain, palpitation, productive cough, skin rash, unilateral leg swelling, calf pain, prolonged travel/immobility, or known exposure to COVID-19. No prior admission for review. All medication listed at time of admission has been reconciled. Advanced care planning conducted in ED. Vascular consulted for pulmonary embolism. Patient is on room air, and ambulating without difficulty. Reviewed CT scan and there is no right heart strain based on CT criteria. Patient has dilated cardiomyopathy. Patient is on oral contraceptives. Discussed with patient that she should discontinue this going further. Palpable pedal pulses. Past History Past Medical History: heart failure, other (See HPI) Past Surgical History: Other (Cardiac cath) Social history: single. denies: smoking, alcohol abuse, prescription drug abuse Family history: hypertension Medications and Allergies Allergies Allergy/AdvReac Type Severity Reaction Status Date / Time No Known Allergies Allergy Verified 09/03/21 13:13 Home Medications Medication Instructions Recorded Confirmed Last Taken Type Benzonatate [Tessalon Perles] 100 mg PO Q8HR 09/02/21 09/03/21 Unknown History Bromocriptine [Parlodel] 2.5 mg PO DAILY 09/02/21 09/03/21 Unknown History Furosemide [Lasix] 40 mg PO DAILY 09/02/21 09/03/21 Unknown History Valsartan [Diovan] 160 mg PO QDAY 09/02/21 09/03/21 Unknown History carvediloL [Coreg] 12.5 mg PO BID 09/02/21 09/03/21 Unknown History Loratadine [Claritin] 10 mg PO QDAY 09/03/21 09/03/21 Unknown History Multivitamin [Multiple Vitamins] 1 each PO QDAY 09/03/21 09/03/21 Unknown History Norethindrone-E.estradiol-Iron 1 each PO QDAY 09/03/21 09/03/21 Unknown History [Gloria Fe 1-20 Tablet] Active Meds: Active Medications Acetaminophen (Acetaminophen 325 Mg Tab) 650 mg PO Q4H PRN PRN Reason: Pain MILD(1-3)/Fever >100.5/ORSS Albuterol (Albuterol 2.5 Mg/3 Ml Nebu) 2.5 mg IH Q4HRT PRN PRN Reason: Shortness Of Breath Apixaban (Apixaban 5 Mg Tab) 10 mg PO Q12HR SCOOBY; Protocol Stop: 09/09/21 10:01 Last Admin: 09/03/21 09:58 Dose: 10 mg Bromocriptine Mesylate (Bromocriptine 2.5 Mg Tab) 2.5 mg PO DAILY [facility] Last Admin: 09/02/21 11:57 Dose: 2.5 mg Carvedilol (Carvedilol 12.5 Mg Tab) 12.5 mg PO BID [facility] Last Admin: 09/03/21 09:57 Dose: 12.5 mg Hydromorphone HCl (Hydromorphone 1 Mg/1 Ml Inj) 0.5 mg IV Q13H PRN PRN Reason: Pain , Severe (7-10) Ondansetron HCl (Ondansetron 4 Mg/2 Ml Inj) 4 mg IV Q8H PRN PRN Reason: Nausea And Vomiting Oxycodone/Acetaminophen (Oxycodone /Acetaminophen 5-325mg Tab) 1 tab PO Q6H PRN PRN Reason: Pain, Moderate (4-6) Sodium Chloride (Sodium Chloride 0.9% 10 Ml Flush Syringe) 10 ml IV BID [facility] Last Admin: 09/03/21 10:02 Dose: 10 ml Sodium Chloride (Sodium Chloride 0.9% 10 Ml Flush Syringe) 10 ml IV PRN PRN PRN Reason: LINE FLUSH Valsartan (Valsartan 160mg Tab) 160 mg PO QDAY [facility] Last Admin: 09/03/21 09:50 Dose: Not Given Review of Systems All systems: negative (see HPI) Exam - Constitutional Vitals: Temp Pulse Resp BP Pulse Ox 97.6 F 92 H 14 109/80 99 09/03/21 07:40 09/03/21 09:57 09/03/21 07:40 09/03/21 09:50 09/03/21 09:35 General appearance: Present: no acute distress - EENT Eyes: Present: EOM intact ENT: hearing intact - Neck Neck: Present: supple - Respiratory Respiratory effort: normal - Extremities Extremities: pulses intact, normal temperature, normal color - Abdominal General gastrointestinal: Present: soft, non-tender - Psychiatric Psychiatric: appropriate mood/affect, cooperative Results - Labs CBC & Chem 7: 09/03/21 08:01 09/03/21 08:01 Labs: Abnormal lab results 09/02/21 09/02/21 09/02/21 Range/Units 09:20 23:48 23:48 MCH 25 L (28-32) pg RDW 16.0 H (13.2-15.2) % [place] % (Auto) (0.0-7.3) % PT 17.1 H (12.2-14.9) Sec. INR 1.24 H (0.87-1.13) POC Glucose 120 H (70-105) mg/dL Calcium (8.4-10.2) mg/dL 09/03/21 09/03/21 Range/Units 08:01 08:01 MCH 25 L (28-32) pg RDW 15.6 H (13.2-15.2) % [place] % (Auto) 10.8 H (0.0-7.3) % PT (12.2-14.9) Sec. INR (0.87-1.13) POC Glucose (70-105) mg/dL Calcium 8.3 L (8.4-10.2) mg/dL Assessment and Plan 36-year-old female with multiple medical issues including prior cardiac thrombus who presents with pulmonary embolism. Patient denies swelling or pain of her legs. Patient is currently on oral contraceptives. CT scan demonstrates no right heart strain based on CT criteria. There is dilated cardiomyopathy. Main pulmonary artery is enlarged compatible with chronic pulmonary hypertension. There is lobar right-sided pulmonary emboli. Patient has limited symptoms from her pulmonary embolism and is on room air and able to ambulate without issue. Although I discussed with the patient that typically anticoagulation is only for 3 months, given her prior cardiac thrombus, she probably should be on anticoagulation for life. Recommended discontinuing and oral contraceptives. Follow-up with [facility]. Recommend DOAC. No intervention required.
--- NOTE | 2021-09-03 13:42 | Electrocardiograph Report ---
[facility] Test Date: 2021-09-02 Test Time: 07:35:35 Pat Name: CHERELLE LOPEZ Department: Room: A478 Gender: F [employer]ist: KIRSTEN : 1985 Requested By: ALEJANDRA MISTRY Order Number: [id number] Reading MD: Obdulia Scott Measurements Intervals [place] Rate: 120 P: 30 [place]: 139 QRS: 6 QRSD: 94 T: 9 QT: 352 QTc: 498 Interpretive Statements Sinus tachycardia Possible anterior infarct, old Prolonged QT interval No previous ECG available for comparison Electronically Signed On 09-03-2021 13:42:19 EDT by Obdulia Scott
--- NOTE | 2021-09-03 15:50 | Consultation ---
History of Present Illness Consult date: 09/03/21 Requesting physician: ALEJANDRA MISTRY Consult reason: congestive heart failure History of present illness: Patient 36-year-old female with a past medical history of hypertension, CHF, history of PEs no longer on anticoagulation, and PCOS who presented to the ED with a complaint of left arm numbness and shortness of breath that has been going on since Friday. Patient reports since Friday she has developed worsening shortness of breath and left arm numbness. Patient reports that even though she has a history of PEs she was taken off anticoagulation by her primary unemployment benefits claims taker over a year ago. Of note patient was found to have multiple PEs on CT and elevated BNP. She denies chest pain, nausea, vomiting, diaphoresis, orthopnea, or bilateral lower extremity edema. Patient follows with a Dr. Misha olivera at [facility]. Patient is previously unknown to our practice. Cardiology is consulted for CHF. Past History Past Medical History: heart failure, other (See HPI) Past Surgical History: Other (Cardiac cath) Social history: single. denies: smoking, alcohol abuse, prescription drug abuse Family history: hypertension Medications and Allergies Allergies Allergy/AdvReac Type Severity Reaction Status Date / Time No Known Allergies Allergy Verified 09/03/21 13:13 Home Medications Medication Instructions Recorded Confirmed Last Taken Type Benzonatate [Tessalon Perles] 100 mg PO Q8HR 09/02/21 09/03/21 Unknown History Bromocriptine [Parlodel] 2.5 mg PO DAILY 09/02/21 09/03/21 Unknown History Furosemide [Lasix] 40 mg PO DAILY 09/02/21 09/03/21 Unknown History Valsartan [Diovan] 160 mg PO QDAY 09/02/21 09/03/21 Unknown History carvediloL [Coreg] 12.5 mg PO BID 09/02/21 09/03/21 Unknown History Loratadine [Claritin] 10 mg PO QDAY 09/03/21 09/03/21 Unknown History Multivitamin [Multiple Vitamins] 1 each PO QDAY 09/03/21 09/03/21 Unknown History Norethindrone-E.estradiol-Iron 1 each PO QDAY 09/03/21 09/03/21 Unknown History [Gloria Fe 1-20 Tablet] Active Meds: Active Medications Acetaminophen (Acetaminophen 325 Mg Tab) 650 mg PO Q4H PRN PRN Reason: Pain MILD(1-3)/Fever >100.5/ROSS Albuterol (Albuterol 2.5 Mg/3 Ml Nebu) 2.5 mg IH Q4HRT PRN PRN Reason: Shortness Of Breath Apixaban (Apixaban 5 Mg Tab) 10 mg PO Q12HR [facility]; Protocol Stop: 09/09/21 10:01 Last Admin: 09/03/21 09:58 Dose: 10 mg Bromocriptine Mesylate (Bromocriptine 2.5 Mg Tab) 2.5 mg PO DAILY [facility] Last Admin: 09/02/21 11:57 Dose: 2.5 mg Carvedilol (Carvedilol 12.5 Mg Tab) 12.5 mg PO BID [facility] Last Admin: 09/03/21 09:57 Dose: 12.5 mg Hydromorphone HCl (Hydromorphone 1 Mg/1 Ml Inj) 0.5 mg IV Q13H PRN PRN Reason: Pain , Severe (7-10) Ondansetron HCl (Ondansetron 4 Mg/2 Ml Inj) 4 mg IV Q8H PRN PRN Reason: Nausea And Vomiting Oxycodone/Acetaminophen (Oxycodone /Acetaminophen 5-325mg Tab) 1 tab PO Q6H PRN PRN Reason: Pain, Moderate (4-6) Sodium Chloride (Sodium Chloride 0.9% 10 Ml Flush Syringe) 10 ml IV BID [facility] Last Admin: 09/03/21 10:02 Dose: 10 ml Sodium Chloride (Sodium Chloride 0.9% 10 Ml Flush Syringe) 10 ml IV PRN PRN PRN Reason: LINE FLUSH Valsartan (Valsartan 160mg Tab) 160 mg PO QDAY [facility] Last Admin: 09/03/21 09:50 Dose: Not Given Review of Systems All systems: negative Physical Examination Vital Signs Temp Pulse Resp BP Pulse Ox 97.8 F 104 H 18 138/89 100 09/02/21 00:43 09/02/21 00:43 09/02/21 00:43 09/02/21 00:43 09/02/21 00:43 General appearance: no acute distress HEENT: Positive: PERRL Neck: Positive: trachea midline Cardiac: Positive: Reg Rate and Rhythm Lungs: Positive: Decreased Breath Sounds Neuro: Positive: Grossly Intact Abdomen: Positive: Unremarkable, Soft Skin: Negative: Rash, Suspicious Lesions, Ulceration Extremities: Present: upper extr. pulses. Absent: edema Results 09/03/21 08:01 09/03/21 08:01 Coagulation 09/02/21 Range/Units 23:48 PT 17.1 H (12.2-14.9) Sec. INR 1.24 H (0.87-1.13) APTT 35.0 (24.2-36.6) Sec. CBC 09/02/21 09/03/21 Range/Units 23:48 08:01 WBC 8.7 7.6 (4.5-11.0) K/mm3 RBC 4.74 4.47 (3.65-5.03) M/mm3 Hgb 11.7 11.3 (10.1-14.3) gm/dl Hct 37.3 35.3 (30.3-42.9) % Plt Count 327 315 (140-440) K/mm3 Lymph # (Auto) 2.0 (1.2-5.4) K/mm3 [place] # (Auto) 0.8 (0.0-0.8) K/mm3 Eos # (Auto) 0.3 (0.0-0.4) K/mm3 Baso # (Auto) 0.1 (0.0-0.1) K/mm3 Comprehensive Metabolic Panel 09/02/21 09/03/21 Range/Units 23:48 08:01 Sodium 141 (137-145) mmol/L Potassium 3.7 (3.6-5.0) mmol/L Chloride 103.1 (98-107) mmol/L Carbon Dioxide 26 (22-30) mmol/L BUN 12 (7-17) mg/dL Creatinine 1.1 1.1 (0.6-1.2) mg/dL Glucose 83 (65-100) mg/dL Calcium 8.3 L (8.4-10.2) mg/dL - Imaging and Cardiology Echo: report reviewed EKG interpretations - Telemetry EKG Rhythm: Sinus Tachycardia - EKG Sinus rhythms and dysrhythmias: sinus tachycardia Assessment and Plan Patient 36-year-old female with a past medical history of hypertension, CHF, history of PEs no longer on anticoagulation, and PCOS who presented to the ED with a complaint of left arm numbness and shortness of breath that has been going on since Friday Multiple PEs-vascular following Acute on chronic HFrEF Hypertension PCOS Echo 09/03/2021-EF 10 to 15% mild diastolic dysfunction is present impaired laxation pattern. LV severely dilated. Right ventricle mild to moderately dilated. Right ventricle systolic function is mildly reduced. Plan: EKG shows sinus tach 120 prolonged QT. No acute ischemic changes. Troponin negative x1. Patient denies any complaint of chest pain Currently on Eliquis, carvedilol, valsartan, Strict I&O's repeat BMP in a.m. BNP noted to be elevated however. Echo results noted above Due to severely decreased EF will order LifeVest Will defer to vascular for management of PEs Patient seen in conjunction with Dr. Cash who agrees with this plan of care - Patient Problems (1) Acute congestive heart failure Current Visit: Yes Status: Acute (2) Acute hypoxemic respiratory failure Current Visit: Yes Status: Acute (3) Left upper extremity numbness Current Visit: Yes Status: Acute (4) Multiple pulmonary emboli Current Visit: Yes Status: Acute (5) Obesity hypoventilation syndrome Current Visit: Yes Status: Acute
[2021-09-03] MEDS ORDERED: WARFARIN 7.5 MG TAB PO SCH (17:00)
[2021-09-03] MEDS: BROMOCRIPTINE 2.5 MG TAB PO SCH (18:08)
[2021-09-03] MEDS: ENOXAPARIN 80 MG/0.8 ML INJ SUB-Q SCH (21:37)
[2021-09-04 05:58] LABS: Hematocrit 35.7 % (30.3-42.9); Hemoglobin 11.3 gm/dl (10.1-14.3); Mean Corpuscular HGB Conc 32 % (30-34); Mean Corpuscular Volume 79 fl (79-97); Platelet Count 322 K/mm3 (140-440); Red Blood Count 4.52 M/mm3 (3.65-5.03); Red Cell Distribution Width 15.9 % (13.2-15.2)
[2021-09-04 06:11] LABS: INR 0.95 (0.87-1.13)
[2021-09-04 06:19] LABS: BUN/Creatinine Ratio 17; Blood Urea Nitrogen 17 mg/dL (7-17); Calcium 8.2 mg/dL (8.4-10.2); Hemolysis Index 12
[2021-09-04] MEDS: VALSARTAN 160MG TAB PO SCH (09:19)
[2021-09-04] MEDS: FUROSEMIDE 40 MG TAB PO SCH (09:23)
[2021-09-04] MEDS: BROMOCRIPTINE 2.5 MG TAB PO SCH (09:23)
[2021-09-04] MEDS: ENOXAPARIN 80 MG/0.8 ML INJ SUB-Q SCH ×2 (09:24→21:15)
[2021-09-04] MEDS: carvediloL 12.5 MG TAB PO SCH ×2 (09:24→21:15)
--- NOTE | 2021-09-04 12:41 | Progress Note ---
Assessment and Plan Patient 36-year-old female with a past medical history of hypertension, CHF, history of PEs no longer on anticoagulation, and PCOS who presented to the ED with a complaint of left arm numbness and shortness of breath that has been going on since Friday Assessment: Multiple PEs Acute on chronic HFrEF Hypertension PCOS Cardiographics: Echo 09/03/2021-EF 10 to 15% mild diastolic dysfunction is present impaired laxation pattern. LV severely dilated. Right ventricle mild to moderately dilated. Right ventricle systolic function is mildly reduced. Plan: EKG shows sinus tach 120 prolonged QT. No acute ischemic changes. Troponin negative x1. Patient denies any complaints of chest pain. Euvolemic on exam. No cardiac complaints. Denies SOB. Continue Coumadin, carvedilol, valsartan, lasix 40 mg PO qday. INR subtherapeutic today; pharmacy to dose coumadin and subQ lovenox for bridging. (Patient states she has been on coumadin in the past) LifeVest order placed (EF 10-15%); Have been in discussion with Wilfrido Velasquez who is working on the order. LifeVest is pending. Vascular recommendations noted. Strict I&O's Repeat BMP in a.m. Patient seen in conjunction with Dr. Nora Cash who agrees with this plan of care - Patient Problems (1) Acute on chronic HFrEF (heart failure with reduced ejection fraction) Current Visit: Yes Status: Acute (2) Multiple pulmonary emboli Current Visit: Yes Status: Acute (3) Obesity hypoventilation syndrome Current Visit: Yes Status: Acute (4) PCOS (polycystic ovarian syndrome) Current Visit: Yes Status: Acute (5) Pulmonary emboli Current Visit: Yes Status: Acute Qualifiers: Pulmonary embolism type: multiple subsegmental (without acute cor pulmonale) Qualified Code(s): I26.94 - Multiple subsegmental pulmonary emboli without acute cor pulmonale Subjective Date of service: 09/04/21 Principal diagnosis: acute on chronic HFrEF, PE Interval history: Patient seen and examined today in the hospital room. She is up in the chair, doing crossword puzzles. She has no cardiac complaints. She is chest pain-free and without shortness of breath. She states she has been walking around the room. Discussion had with patient regarding need for LifeVest as her ejection fraction is severely reduced and she is at high risk for sudden cardiac due to arrhythmias. Patient states she is worn a LifeVest before and needs an AICD, however, she states that that is all pending until she can get insurance. Patient verbalizes understanding. Have been in discussion with LifeVest motor vehicle representative. Order has been placed and is pending Telemetry: Sinus rhythm 90 Objective Vital Signs Temp Pulse Resp BP Pulse Ox 09/04/21 12:04 97.9 F 85 16 98/63 97 09/04/21 08:24 97.7 F 89 16 106/78 97 09/04/21 08:00 99 09/04/21 07:00 92 H 09/04/21 04:05 97.6 F 81 12 93/54 98 09/03/21 23:57 97.6 F 82 16 97/61 99 09/03/21 20:33 98.2 F 92 H 18 100/67 99 09/03/21 20:07 89 09/03/21 20:00 99 09/03/21 15:57 98.1 F 91 H 14 102/69 97 09/03/21 15:00 87 - Physical Examination General: Appears Well, No Apparent Distress HEENT: Positive: Normocephaly Neck: Positive: trachea midline Cardiac: Positive: Reg Rate and Rhythm, S1/S2. Negative: Audible Murmur Lungs: Positive: clear to auscultation Neuro: Positive: Grossly Intact Abdomen: Positive: Unremarkable, Soft Skin: Negative: Rash, Suspicious Lesions, Ulceration Extremities: Present: upper extr. pulses. Absent: edema - Labs and Meds Coagulation 09/04/21 Range/Units 05:43 PT 13.7 (12.2-14.9) Sec. INR 0.95 (0.87-1.13) CBC 09/04/21 Range/Units 05:43 WBC 6.9 (4.5-11.0) K/mm3 RBC 4.52 (3.65-5.03) M/mm3 Hgb 11.3 (10.1-14.3) gm/dl Hct 35.7 (30.3-42.9) % Plt Count 322 (140-440) K/mm3 Comprehensive Metabolic Panel 09/04/21 Range/Units 05:43 Sodium 140 (137-145) mmol/L Potassium 3.8 (3.6-5.0) mmol/L Chloride 103.1 (98-107) mmol/L Carbon Dioxide 27 (22-30) mmol/L BUN 17 (7-17) mg/dL Creatinine 1.0 (0.6-1.2) mg/dL Glucose 104 H (65-100) mg/dL Calcium 8.2 L (8.4-10.2) mg/dL - Imaging and Cardiology EKG: image reviewed Echo: report reviewed - Telemetry EKG Rhythm: Sinus Rhythm - EKG Sinus rhythms and dysrhythmias: sinus tachycardia
[2021-09-04] MEDS ORDERED: WARFARIN 7.5 MG TAB PO NR (17:00)
--- NOTE | 2021-09-04 17:18 | Progress Note ---
Assessment and Plan Assessment and plan: #Acute hypoxemic respiratory failure-resolved -patient weaned to RA -elevated d-dimer, CTA showed PEs in R systems -likely secondary to acute PE -continue pulse oximetry #Acute on chronic Heart failure with combined preserved and reduced ejection fractionimproving -BNP 63807 -TTE 09/03: EF 10-15% Cardiology consulted; appreciate recs. Pending LifeVest. -continue Lasix 40 daily, valsartan 160 mg daily, Coreg 12.5 mg twice daily -strict I's/O, monitor urine output every shift, daily weight, afterload reduction, blood pressure control #Subsegmental pulmonary emboli -CT angio of the chest showed cute PTE within the right upper and lower lobe segmental and subsegmental branches -TTE shows no evidence of right heart strain -patient has previous history of DVT and was on warfarin in the past -will d/c apixaban and start warfarin 7.5mg daily for pharmacy to dose and will use subcutaneous lovenox 80mg bid for bridging -Vascular surgery consulted, assistance appreciated. Recommended that patient discontinues oral contraceptive pill. No intervention at this time. #Obesity hypoventilation syndrome -Balanced diet, increase physical activity discharge, outpatient pulmonary follow-up for sleep study. #PCOS (polycystic ovarian syndrome) -stable, patient takes OTC OCPs. Recommended that patient discontinues oral contraceptive pill in the setting of pulmonary embolisms. -outpatient [facility] follow-up #Hypocalcemia Calcium 8.2 Repleted. Continue to monitor. #Obesity #Weight loss counseling #Exercise counseling - BMI 33.8 - Counseled patient on the importance of weight loss, incorporating exercise, and dietary changes (lean meats, fresh fruits and vegetables, and water intake). Patient expresses understanding. - Time: +15 min #Advanced care planning -Disease education conducted, care plan discussed, diagnoses discussed, prognosis discussed, and patient acknowledges understanding with care plan -Time: +30 min Disposition Plan: Continue medical management Total Time Spent with Patient (Minutes): 45 minutes History Interval history: No acute events overnight. Hospitalist Physical - Constitutional Vitals: Temp Pulse Resp BP Pulse Ox 97.9 F 88 16 101/70 100 09/04/21 16:22 09/04/21 16:22 09/04/21 16:22 09/04/21 16:22 09/04/21 16:22 General appearance: Present: no acute distress, well-nourished, obese - EENT Eyes: Present: PERRL ENT: hearing intact, clear oral mucosa, dentition normal - Neck Neck: Present: supple, normal ROM - Respiratory Respiratory effort: normal Respiratory: bilateral: CTA - Cardiovascular Rhythm: regular Heart Sounds: Present: S1 & S2 - Extremities Extremities: no ischemia, pulses intact, pulses symmetrical, No edema, normal temperature, normal color, Full ROM Peripheral Pulses: within normal limits - Abdominal General gastrointestinal: soft, non-tender, non-distended, normal bowel sounds - Integumentary Integumentary: Present: clear, warm, dry - Psychiatric Psychiatric: appropriate mood/affect, intact judgment & insight, memory intact, cooperative - Neurologic Neurologic: CNII-XII intact, moves all extremities - Allied Health Allied health notes reviewed: nursing HEART Score - HEART Score Troponin: Troponin T < 0.010 ng/mL (0.00-0.029) 09/02/21 08:45 Results - Labs CBC & Chem 7: 09/04/21 05:43 09/04/21 05:43 Labs: Laboratory Last Values WBC 6.9 K/mm3 (4.5-11.0) 09/04/21 05:43 RBC 4.52 M/mm3 (3.65-5.03) 09/04/21 05:43 Hgb 11.3 gm/dl (10.1-14.3) 09/04/21 05:43 Hct 35.7 % (30.3-42.9) 09/04/21 05:43 MCV 79 fl (79-97) 09/04/21 05:43 MCH 25 pg (28-32) L 09/04/21 05:43 MCHC 32 % (30-34) 09/04/21 05:43 RDW 15.9 % (13.2-15.2) H 09/04/21 05:43 Plt Count 322 K/mm3 (140-440) 09/04/21 05:43 Lymph % (Auto) 26.1 % (13.4-35.0) 09/03/21 08:01 [place] % (Auto) 10.8 % (0.0-7.3) H 09/03/21 08:01 Eos % (Auto) 4.3 % (0.0-4.3) 09/03/21 08:01 Baso % (Auto) 0.8 % (0.0-1.8) 09/03/21 08:01 Lymph # (Auto) 2.0 K/mm3 (1.2-5.4) 09/03/21 08:01 [place] # (Auto) 0.8 K/mm3 (0.0-0.8) 09/03/21 08:01 Eos # (Auto) 0.3 K/mm3 (0.0-0.4) 09/03/21 08:01 Baso # (Auto) 0.1 K/mm3 (0.0-0.1) 09/03/21 08:01 Seg Neutrophils % 58.0 % (40.0-70.0) 09/03/21 08:01 Seg Neutrophils # 4.4 K/mm3 (1.8-7.7) 09/03/21 08:01 PT 13.7 Sec. (12.2-14.9) 09/04/21 05:43 INR 0.95 (0.87-1.13) 09/04/21 05:43 APTT 35.0 Sec. (24.2-36.6) 09/02/21 23:48 Thrombin Time 14.8 Sec. (15.1-19.6) L 09/02/21 08:45 D-Dimer 1302.53 ng/mlDDU (0-234) H 09/02/21 08:57 Sodium 140 mmol/L (137-145) 09/04/21 05:43 Potassium 3.8 mmol/L (3.6-5.0) 09/04/21 05:43 Chloride 103.1 mmol/L (98-107) 09/04/21 05:43 Carbon Dioxide 27 mmol/L (22-30) 09/04/21 05:43 Anion Gap 14 mmol/L 09/04/21 05:43 BUN 17 mg/dL (7-17) 09/04/21 05:43 Creatinine 1.0 mg/dL (0.6-1.2) 09/04/21 05:43 Estimated GFR > 60 ml/min 09/04/21 05:43 BUN/Creatinine Ratio 17 % 09/04/21 05:43 Glucose 104 mg/dL (65-100) H 09/04/21 05:43 POC Glucose 93 mg/dL (70-105) 09/03/21 07:38 Calcium 8.2 mg/dL (8.4-10.2) L 09/04/21 05:43 Magnesium 2.10 mg/dL (1.7-2.3) 09/02/21 08:57 Total Bilirubin 1.30 mg/dL (0.1-1.2) H 09/02/21 08:57 AST 46 units/L (5-40) H 09/02/21 08:57 ALT 77 units/L (7-56) H 09/02/21 08:57 Alkaline Phosphatase 79 units/L (35-129) 09/02/21 08:57 Total Creatine Kinase 87 units/L (30-135) 09/02/21 08:45 CK-MB (CK-2) 1.1 ng/mL (0.0-4.0) 09/02/21 08:45 CK-MB (CK-2) Rel Index 1.2 (0-4) 09/02/21 08:45 Troponin T < 0.010 ng/mL (0.00-0.029) 09/02/21 08:45 NT-Pro-B Natriuret Pep 07348 pg/mL (0-450) H 09/02/21 08:57 Total Protein 6.3 g/dL (6.3-8.2) 09/02/21 08:57 Albumin 3.6 g/dL (3.9-5) L 09/02/21 08:57 Albumin/Globulin Ratio 1.3 % 09/02/21 08:57 TSH 2.270 mlU/mL (0.270-4.200) 09/02/21 08:57 HCG, Quant < 2 mIU/mL (0-4) 09/02/21 08:57 [place]/IV: Voiding Method Toilet Active Medications - Current Medications Current Medications: Generic Name Dose Route Start Last Admin Trade Name Freq PRN Reason Stop Dose Admin Acetaminophen 650 mg 09/02/21 13:02 Acetaminophen 325 Mg Tab PO Q4H PRN Pain MILD(1-3)/Fever >100.5/ROSS Albuterol 2.5 mg 09/02/21 13:02 Albuterol 2.5 Mg/3 Ml Nebu IH Q4HRT PRN Shortness Of Breath Bromocriptine Mesylate 2.5 mg 09/02/21 11:00 09/04/21 09:23 Bromocriptine 2.5 Mg Tab PO 2.5 mg DAILY SCOOBY Administration Carvedilol 12.5 mg 09/02/21 11:00 09/04/21 09:24 Carvedilol 12.5 Mg Tab PO 12.5 mg BID SCOOBY Administration Enoxaparin Sodium 80 mg 09/03/21 22:00 09/04/21 09:24 Enoxaparin 80 Mg/0.8 Ml Inj SUB-Q 80 mg Q12HR SCOOBY Administration Protocol Furosemide 40 mg 09/04/21 10:00 09/04/21 09:23 Furosemide 40 Mg Tab PO 40 mg QDAY SCOOBY Administration Hydromorphone HCl 0.5 mg 09/02/21 13:02 Hydromorphone 1 Mg/1 Ml Inj IV Q13H PRN Pain , Severe (7-10) Ondansetron HCl 4 mg 09/02/21 13:02 Ondansetron 4 Mg/2 Ml Inj IV Q8H PRN Nausea And Vomiting Oxycodone/Acetaminophen 1 tab 09/02/21 13:02 Oxycodone /Acetaminophen 5-325mg Tab PO Q6H PRN Pain, Moderate (4-6) Sodium Chloride 10 ml 09/02/21 22:00 09/04/21 09:23 Sodium Chloride 0.9% 10 Ml Flush Syringe IV 10 ml BID SCOOBY Administration Sodium Chloride 10 ml 09/02/21 13:02 Sodium Chloride 0.9% 10 Ml Flush Syringe IV PRN PRN LINE FLUSH Valsartan 160 mg 09/02/21 11:00 09/04/21 09:19 Valsartan 160mg Tab PO Not Given QDAY [facility] Warfarin Sodium 7.5 mg 09/04/21 17:00 Warfarin 7.5 Mg Tab PO 09/05/21 16:59 DAILY@1700 NR Nutrition/Malnutrition Assess - Dietary Evaluation Nutrition/Malnutrition Findings: Nutrition Notes Start: 09/04/21 10:27 Freq: Status: Active Protocol: Document 09/04/21 10:27 TIERRA (Rec: 09/04/21 11:14 TIERRA [id number]) Nutrition Notes Need for Assessment generated from: Education Initial or Follow up Assessment Current Diagnosis Respiratory Failure Other Pertinent Diagnosis HFpEF, Pulmonary Emboli, Pleural Effusion, Intracardiac Thrombus, PCOS ... Current Diet Cardiac/Consistent Carbohydrates Diet (since D ), D Suppl (L 09/04) . Labs/Tests 09/04: Glu 104, Ca 8.2. Pertinent Medications 09/04: Coumadin 7.5 mg, others nutritionally unremarkable. Height 5 ft 2 in Weight 83.915 kg [place] Body Weight (kg) 50.00 BMI 33.8 Intake Prior to Admission Good Weight change and time frame Pt denies having loss body weight [employer]. Pt states having, unintentionally, gain 15 lb within the last 2 weeks, according to History & Physical notes. Weight Status Obese Subjective/Other Information RD consult for use of warfarin assessment. Pt's PO intake of meals has been Poor (25-50%), according to ADL notes. I will prescribe Dietary Supplements to compensate for Poor PO intake of meals. Pt passed bedside Swallow screen, according to Swallow Screen History notes. Pt is on Room Air, O2 saturation @ 99%, according to Physical Assessment History notes. Pt states having, unintentionally, gain 15 lb within the last 2 weeks, according to History & Physical notes. Pt has a previous history of warfarine use, but states having discontinued about a year ago, according to Progress notes. Pt is not a candidate for nutrition education. Percent of energy/protein needs met: Prescribed Cardiac/Consistent Carbohydrates Diet provides for energy/protein needs (1, 977 Kcal/86 g) during LOS; additionally, Dietary Supplements will compensate for possible poor or insufficient PO intake of meals with 700 Kcal and 40 g of protein. Burn Absent Trauma Absent GI Symptoms None Food Allergy No Skin Integrity/Comment Assessment WNL. Current % PO Poor (25-49%) Minimum of two criteria No #1 Nutrition Diagnosis Inadequate protein-energy intake Etiology Uncertain. As Evidenced by Signs and Symptoms Pt's PO intake of meals has been Poor (25-50%), according to ADL notes. Is patient on ventilator? No Is Patient Ambulatory and/or Out of Bed Yes REE-([place]. Jeor-ambulatory/OOB) [ 1940.120 [id number]] Kcal/Kg value to use for calculation 15 Approximate Energy Requirements Using 1259 kcal/Kg Calculation Used for Recommendations Kcal/kg Additional Notes Protein: 0.8-1 g/Kg AdjBW; 67- 84 g/day. Fluids: 1 ml/Kcal, or as per MD. Nutrition Intervention Change Diet Order: Continue Cardiac/Consistent Carbohydrates Diet. Add Supplement/Snack (indicate name/kcal Start 8 fl oz Ensure Enlive; /protein ) BID. Provides kCal: 700 Provides Protein (gm) 40 Goal #1 Compensate, through dietary supplementation, for possible poor or insufficient PO intake of meals during LOS. Goal #2 Maintain body weight within +/ -3% of admission body weight during LOS. Follow-Up By: 09/11/21 Additional Comments Continue monitoring food tolerance, %PO intake of meals , and BM.
[2021-09-05 06:15] LABS: INR 1.08 (0.87-1.13)
[2021-09-05 06:18] LABS: BUN/Creatinine Ratio 16; Blood Urea Nitrogen 19 mg/dL (7-17); Calcium 8.3 mg/dL (8.4-10.2); Hemolysis Index 11
--- NOTE | 2021-09-05 11:17 | Progress Note ---
Assessment and Plan Patient 36-year-old female with a past medical history of hypertension, CHF, history of PEs no longer on anticoagulation, and PCOS who presented to the ED with a complaint of left arm numbness and shortness of breath that has been going on since Friday Assessment: Multiple PEs Acute on chronic HFrEF Hypertension PCOS Cardiographics: Echo 09/03/2021-EF 10 to 15% mild diastolic dysfunction is present impaired laxation pattern. LV severely dilated. Right ventricle mild to moderately dilated. Right ventricle systolic function is mildly reduced. Plan: EKG shows sinus tach 120 prolonged QT. No acute ischemic changes. Troponin negative x1. Patient denies any complaints of chest pain. Euvolemic on exam. No cardiac complaints. Denies SOB. Continue Coumadin, carvedilol, valsartan, lasix 40 mg PO qday. INR remains subtherapeutic today; pharmacy to dose coumadin and subQ lovenox for bridging. (Patient states she has been on coumadin in the past) LifeVest order placed (EF 10-15%); Have been in discussion with Wilfrido Velasquez who is working on the order. LifeVest is pending. Vascular recommendations noted. Strict I&O's Repeat BMP in a.m. Creatinine increased slightly. Monitor closely. Patient seen in conjunction with Dr. Nora Cash who agrees with this plan of care - Patient Problems (1) Acute on chronic HFrEF (heart failure with reduced ejection fraction) Current Visit: Yes Status: Acute (2) Multiple pulmonary emboli Current Visit: Yes Status: Acute (3) Obesity hypoventilation syndrome Current Visit: Yes Status: Acute (4) PCOS (polycystic ovarian syndrome) Current Visit: Yes Status: Acute (5) Pulmonary emboli Current Visit: Yes Status: Acute Qualifiers: Pulmonary embolism type: multiple subsegmental (without acute cor pulmonale) Qualified Code(s): I26.94 - Multiple subsegmental pulmonary emboli without acute cor pulmonale Subjective Date of service: 09/05/21 Principal diagnosis: acute on chronic HFrEF, PE Interval history: Patient seen and examined today in the hospital room. She is up in the chair. She has no cardiac complaints. LifeVest Order has been placed and is pending Telemetry: Sinus rhythm 80's Intake & Output 09/04/21 09/05/21 09/05/21 23:59 07:59 15:59 Intake Total 200 120 Balance 200 120 Weight 83.3 kg Objective Vital Signs Temp Pulse Pulse Resp BP Pulse Ox 09/05/21 08:52 97.6 F 97 H 18 103/79 99 09/05/21 03:24 97.6 F 90 18 93/58 98 09/04/21 23:35 97.6 F 82 18 95/68 97 09/04/21 23:00 91 H 09/04/21 20:00 81 18 96 09/04/21 19:43 97.5 F L 87 18 105/77 100 09/04/21 16:22 97.9 F 88 16 101/70 100 09/04/21 12:04 97.9 F 85 16 98/63 97 - Physical Examination General: Appears Well, No Apparent Distress HEENT: Positive: Normocephaly, Mucus Membranes Moist Neck: Positive: trachea midline Cardiac: Positive: Reg Rate and Rhythm Lungs: Positive: Normal Exam Neuro: Positive: Grossly Intact Abdomen: Positive: Unremarkable, Soft Skin: Negative: Rash, Suspicious Lesions, Ulceration Extremities: Present: upper extr. pulses. Absent: edema - Labs and Meds Coagulation 09/05/21 Range/Units 05:30 PT 15.2 H (12.2-14.9) Sec. INR 1.08 (0.87-1.13) Comprehensive Metabolic Panel 09/05/21 Range/Units 05:30 Sodium 139 (137-145) mmol/L Potassium 3.7 (3.6-5.0) mmol/L Chloride 103.0 (98-107) mmol/L Carbon Dioxide 26 (22-30) mmol/L BUN 19 H (7-17) mg/dL Creatinine 1.2 (0.6-1.2) mg/dL Glucose 93 (65-100) mg/dL Calcium 8.3 L (8.4-10.2) mg/dL - Imaging and Cardiology EKG: image reviewed Echo: report reviewed - Telemetry EKG Rhythm: Sinus Rhythm - EKG Sinus rhythms and dysrhythmias: sinus tachycardia
[2021-09-05] MEDS: ENOXAPARIN 80 MG/0.8 ML INJ SUB-Q SCH ×2 (13:45→21:52)
[2021-09-05] MEDS: BROMOCRIPTINE 2.5 MG TAB PO SCH (13:45)
[2021-09-05] MEDS: carvediloL 12.5 MG TAB PO SCH ×2 (13:45→21:57)
[2021-09-05] MEDS: VALSARTAN 160MG TAB PO SCH (13:46)
[2021-09-05] MEDS: FUROSEMIDE 40 MG TAB PO SCH (13:47)
--- NOTE | 2021-09-05 15:10 | Progress Note ---
Assessment and Plan Assessment and plan: #Acute hypoxemic respiratory failure-resolved -patient weaned to RA -elevated d-dimer, CTA showed PEs in R systems -likely secondary to acute PE -continue pulse oximetry #Acute on chronic Heart failure with combined preserved and reduced ejection fractionimproving -BNP 49112 -TTE 09/03: EF 10-15% Cardiology consulted; appreciate recs. Pending LifeVest. -continue Lasix 40 daily, valsartan 160 mg daily, Coreg 12.5 mg twice daily -strict I's/O, monitor urine output every shift, daily weight, afterload reduction, blood pressure control #Subsegmental pulmonary emboli -INR 1.08 (goal 23) -CT angio of the chest showed cute PTE within the right upper and lower lobe segmental and subsegmental branches -TTE shows no evidence of right heart strain -patient has previous history of DVT and was on warfarin in the past -will d/c apixaban and start warfarin 7.5mg daily for pharmacy to dose and will use subcutaneous lovenox 80mg bid for bridging -Vascular surgery consulted, assistance appreciated. Recommended that patient discontinues oral contraceptive pill. No intervention at this time. #Obesity hypoventilation syndrome -Balanced diet, increase physical activity discharge, outpatient pulmonary follow-up for sleep study. #PCOS (polycystic ovarian syndrome) -stable, patient takes OTC OCPs. Recommended that patient discontinues oral contraceptive pill in the setting of pulmonary embolisms. 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 Continue to monitor. #Obesity #Weight loss counseling #Exercise counseling - BMI 33.8 - Counseled patient on the importance of weight loss, incorporating exercise, and dietary changes (lean meats, fresh fruits and vegetables, and water intake). Patient expresses understanding. - Time: +15 min #Advanced care planning -Disease education conducted, care plan discussed, diagnoses discussed, prognosis discussed, and patient acknowledges understanding with care plan -Time: +30 min Disposition Plan: Continue medical management Total Time Spent with Patient (Minutes): 30 minutes History Interval history: No acute events overnight. Hospitalist Physical - Constitutional Vitals: Temp Pulse Resp BP Pulse Ox 97.6 F 97 H 18 103/79 99 09/05/21 08:52 09/05/21 13:46 09/05/21 08:52 09/05/21 08:52 09/05/21 08:52 General appearance: Present: no acute distress, well-nourished, obese - EENT Eyes: Present: PERRL, EOM intact ENT: hearing intact, clear oral mucosa, dentition normal - Neck Neck: Present: supple, normal ROM - Respiratory Respiratory effort: normal - Cardiovascular Rhythm: regular Heart Sounds: Present: S1 & S2 - Extremities Extremities: no ischemia, pulses intact, pulses symmetrical, No edema, normal temperature, normal color, Full ROM Peripheral Pulses: within normal limits - Abdominal General gastrointestinal: soft, non-tender, non-distended, normal bowel sounds - Integumentary Integumentary: Present: clear, warm, dry - Psychiatric Psychiatric: appropriate mood/affect, intact judgment & insight, memory intact, cooperative - Neurologic Neurologic: CNII-XII intact, moves all extremities - Allied Health Allied health notes reviewed: nursing HEART Score - HEART Score Troponin: Troponin T < 0.010 ng/mL (0.00-0.029) 09/02/21 08:45 Results - Labs CBC & Chem 7: 09/04/21 05:43 09/05/21 05:30 Labs: Laboratory Last Values WBC 6.9 K/mm3 (4.5-11.0) 09/04/21 05:43 RBC 4.52 M/mm3 (3.65-5.03) 09/04/21 05:43 Hgb 11.3 gm/dl (10.1-14.3) 09/04/21 05:43 Hct 35.7 % (30.3-42.9) 09/04/21 05:43 MCV 79 fl (79-97) 09/04/21 05:43 MCH 25 pg (28-32) L 09/04/21 05:43 MCHC 32 % (30-34) 09/04/21 05:43 RDW 15.9 % (13.2-15.2) H 09/04/21 05:43 Plt Count 322 K/mm3 (140-440) 09/04/21 05:43 Lymph % (Auto) 26.1 % (13.4-35.0) 09/03/21 08:01 Barnes % (Auto) 10.8 % (0.0-7.3) H 09/03/21 08:01 Eos % (Auto) 4.3 % (0.0-4.3) 09/03/21 08:01 Baso % (Auto) 0.8 % (0.0-1.8) 09/03/21 08:01 Lymph # (Auto) 2.0 K/mm3 (1.2-5.4) 09/03/21 08:01 Barnes # (Auto) 0.8 K/mm3 (0.0-0.8) 09/03/21 08:01 Eos # (Auto) 0.3 K/mm3 (0.0-0.4) 09/03/21 08:01 Baso # (Auto) 0.1 K/mm3 (0.0-0.1) 09/03/21 08:01 Seg Neutrophils % 58.0 % (40.0-70.0) 09/03/21 08:01 Seg Neutrophils # 4.4 K/mm3 (1.8-7.7) 09/03/21 08:01 PT 15.2 Sec. (12.2-14.9) H 09/05/21 05:30 INR 1.08 (0.87-1.13) 09/05/21 05:30 APTT 35.0 Sec. (24.2-36.6) 09/02/21 23:48 Thrombin Time 14.8 Sec. (15.1-19.6) L 09/02/21 08:45 D-Dimer 1302.53 ng/mlDDU (0-234) H 09/02/21 08:57 Sodium 139 mmol/L (137-145) 09/05/21 05:30 Potassium 3.7 mmol/L (3.6-5.0) 09/05/21 05:30 Chloride 103.0 mmol/L (98-107) 09/05/21 05:30 Carbon Dioxide 26 mmol/L (22-30) 09/05/21 05:30 Anion Gap 14 mmol/L 09/05/21 05:30 BUN 19 mg/dL (7-17) H 09/05/21 05:30 Creatinine 1.2 mg/dL (0.6-1.2) 09/05/21 05:30 Estimated GFR > 60 ml/min 09/05/21 05:30 BUN/Creatinine Ratio 16 % 09/05/21 05:30 Glucose 93 mg/dL (65-100) 09/05/21 05:30 POC Glucose 93 mg/dL (70-105) 09/03/21 07:38 Calcium 8.3 mg/dL (8.4-10.2) L 09/05/21 05:30 Magnesium 2.10 mg/dL (1.7-2.3) 09/02/21 08:57 Total Bilirubin 1.30 mg/dL (0.1-1.2) H 09/02/21 08:57 AST 46 units/L (5-40) H 09/02/21 08:57 ALT 77 units/L (7-56) H 09/02/21 08:57 Alkaline Phosphatase 79 units/L (35-129) 09/02/21 08:57 Total Creatine Kinase 87 units/L (30-135) 09/02/21 08:45 CK-MB (CK-2) 1.1 ng/mL (0.0-4.0) 09/02/21 08:45 CK-MB (CK-2) Rel Index 1.2 (0-4) 09/02/21 08:45 Troponin T < 0.010 ng/mL (0.00-0.029) 09/02/21 08:45 NT-Pro-B Natriuret Pep 64368 pg/mL (0-450) H 09/02/21 08:57 Total Protein 6.3 g/dL (6.3-8.2) 09/02/21 08:57 Albumin 3.6 g/dL (3.9-5) L 09/02/21 08:57 Albumin/Globulin Ratio 1.3 % 09/02/21 08:57 TSH 2.270 mlU/mL (0.270-4.200) 09/02/21 08:57 HCG, Quant < 2 mIU/mL (0-4) 09/02/21 08:57 Newell/IV: Voiding Method Toilet Active Medications - Current Medications Current Medications: Generic Name Dose Route Start Last Admin Trade Name Freq PRN Reason Stop Dose Admin Acetaminophen 650 mg 09/02/21 13:02 Acetaminophen 325 Mg Tab PO Q4H PRN Pain MILD(1-3)/Fever >100.5/ROSS Albuterol 2.5 mg 09/02/21 13:02 Albuterol 2.5 Mg/3 Ml Nebu IH Q4HRT PRN Shortness Of Breath Bromocriptine Mesylate 2.5 mg 09/02/21 11:00 09/05/21 13:45 Bromocriptine 2.5 Mg Tab PO 2.5 mg DAILY SCOOBY Administration Carvedilol 12.5 mg 09/02/21 11:00 09/05/21 13:45 Carvedilol 12.5 Mg Tab PO 12.5 mg BID SCOOBY Administration Enoxaparin Sodium 80 mg 09/03/21 22:00 09/05/21 13:45 Enoxaparin 80 Mg/0.8 Ml Inj SUB-Q 80 mg Q12HR SCOOBY Administration Protocol Furosemide 40 mg 09/04/21 10:00 09/05/21 13:47 Furosemide 40 Mg Tab PO 40 mg QDAY SCOOBY Administration Hydromorphone HCl 0.5 mg 09/02/21 13:02 Hydromorphone 1 Mg/1 Ml Inj IV Q13H PRN Pain , Severe (7-10) Ondansetron HCl 4 mg 09/02/21 13:02 Ondansetron 4 Mg/2 Ml Inj IV Q8H PRN Nausea And Vomiting Oxycodone/Acetaminophen 1 tab 09/02/21 13:02 09/04/21 21:14 Oxycodone /Acetaminophen 5-325mg Tab PO 1 tab Q6H PRN Administration Pain, Moderate (4-6) Sodium Chloride 10 ml 09/02/21 22:00 09/05/21 13:47 Sodium Chloride 0.9% 10 Ml Flush Syringe IV 10 ml BID SCOOBY Administration Sodium Chloride 10 ml 09/02/21 13:02 Sodium Chloride 0.9% 10 Ml Flush Syringe IV PRN PRN LINE FLUSH Valsartan 160 mg 09/02/21 11:00 09/05/21 13:46 Valsartan 160mg Tab PO 160 mg QDAY SCOOBY Administration Warfarin Sodium 7.5 mg 09/05/21 17:00 Warfarin 7.5 Mg Tab PO 09/06/21 16:59 DAILY@1700 NR Nutrition/Malnutrition Assess - Dietary Evaluation Nutrition/Malnutrition Findings: Nutrition Notes Start: 09/04/21 10:27 Freq: Status: Active Protocol: Document 09/04/21 10:27 TIERRA (Rec: 09/04/21 11:14 TIERRA [id number]) Nutrition Notes Need for Assessment generated from: Education Initial or Follow up Assessment Current Diagnosis Respiratory Failure Other Pertinent Diagnosis HFpEF, Pulmonary Emboli, Pleural Effusion, Intracardiac Thrombus, PCOS ... Current Diet Cardiac/Consistent Carbohydrates Diet (since D ), D Suppl (L 09/04) . Labs/Tests 09/04: Glu 104, Ca 8.2. Pertinent Medications 09/04: Coumadin 7.5 mg, others nutritionally unremarkable. Height 5 ft 2 in Weight 83.915 kg [place] Body Weight (kg) 50.00 BMI 33.8 Intake Prior to Admission Good Weight change and time frame Pt denies having loss body weight RUBBER DOWN. Pt states having, unintentionally, gain 15 lb within the last 2 weeks, according to History & Physical notes. Weight Status Obese Subjective/Other Information RD consult for use of warfarin assessment. Pt's PO intake of meals has been Poor (25-50%), according to ADL notes. I will prescribe Dietary Supplements to compensate for Poor PO intake of meals. Pt passed bedside Swallow screen, according to Swallow Screen History notes. Pt is on Room Air, O2 saturation @ 99%, according to Physical Assessment History notes. Pt states having, unintentionally, gain 15 lb within the last 2 weeks, according to History & Physical notes. Pt has a previous history of warfarine use, but states having discontinued about a year ago, according to Progress notes. Pt is not a candidate for nutrition education. Percent of energy/protein needs met: Prescribed Cardiac/Consistent Carbohydrates Diet provides for energy/protein needs (1, 977 Kcal/86 g) during LOS; additionally, Dietary Supplements will compensate for possible poor or insufficient PO intake of meals with 700 Kcal and 40 g of protein. Burn Absent Trauma Absent GI Symptoms None Food Allergy No Skin Integrity/Comment Assessment WNL. Current % PO Poor (25-49%) Minimum of two criteria No #1 Nutrition Diagnosis Inadequate protein-energy intake Etiology Uncertain. As Evidenced by Signs and Symptoms Pt's PO intake of meals has been Poor (25-50%), according to ADL notes. Is patient on ventilator? No Is Patient Ambulatory and/or Out of Bed Yes REE-([place]-St. Jeor-ambulatory/OOB) [ 1940.120 NUTR.MSJOOB] Kcal/Kg value to use for calculation 15 Approximate Energy Requirements Using 1259 kcal/Kg Calculation Used for Recommendations Kcal/kg Additional Notes Protein: 0.8-1 g/Kg AdjBW; 67- 84 g/day. Fluids: 1 ml/Kcal, or as per MD. Nutrition Intervention Change Diet Order: Continue Cardiac/Consistent Carbohydrates Diet. Add Supplement/Snack (indicate name/kcal Start 8 fl oz Ensure Enlive; /protein ) BID. Provides kCal: 700 Provides Protein (gm) 40 Goal #1 Compensate, through dietary supplementation, for possible poor or insufficient PO intake of meals during LOS. Goal #2 Maintain body weight within +/ -3% of admission body weight during LOS. Follow-Up By: 09/11/21 Additional Comments Continue monitoring food tolerance, %PO intake of meals , and BM.
[2021-09-05] MEDS ORDERED: WARFARIN 7.5 MG TAB PO NR (17:00)
[2021-09-06 06:36] LABS: Hematocrit 36.4 % (30.3-42.9); Hemoglobin 11.7 gm/dl (10.1-14.3); Mean Corpuscular HGB Conc 32 % (30-34); Mean Corpuscular Volume 78 fl (79-97); Platelet Count 350 K/mm3 (140-440); Red Blood Count 4.66 M/mm3 (3.65-5.03); Red Cell Distribution Width 15.9 % (13.2-15.2)
[2021-09-06 06:51] LABS: BUN/Creatinine Ratio 17; Blood Urea Nitrogen 15 mg/dL (7-17); Calcium 8.6 mg/dL (8.4-10.2); Hemolysis Index 10
[2021-09-06 06:55] LABS: INR 1.22 (0.87-1.13)
--- NOTE | 2021-09-06 11:36 | Discharge Summary ---
Providers - Providers Date of Admission: 09/02/21 18:14 Date of discharge: 09/06/21 Attending physician: AYDEN CHAN MD 09/02/21 11:49 Consult to Physician [CONS] Urgent Comment: Consulting Provider: CUAUHTEMOC POTTER Physician Instructions: Reason For Exam: multiple PE 09/02/21 11:50 Consult to Physician [CONS] Urgent Comment: Consulting Provider: ALEXANDRO SAINI Physician Instructions: Reason For Exam: CHF W pe Hospitalization Reason for admission: Acute heart failure exacerbation, acute hypoxic respiratory failure Condition: Serious Pertinent studies: Reviewed. Procedures: None. Hospital course: 36 YO Female with Obesity Hypoventilation Syndrome, CHF, Pituitary Adenoma, Intracardiac Thrombus, PCOS presents to ED for evaluation. Pt reports " I cannot breathe, I am swollen, and I am coughing". Patient states that she has experienced shortness of breath, dry cough, leg swelling, 15 pound unintentional weight gain over the past 2 weeks, dyspnea on exertion, dyspnea at rest, decreased exercise tolerance, chest discomfort with deep breathing, orthopnea, paroxysmal nocturnal dyspnea. Patient also reports numbness in the left arm over the past 3 weeks. Patient transported to [facility] via private vehicle for further care and evaluation of the aforementioned symptoms. The patient was seen and evaluated in the emergency department. All lab and imaging studies reviewed. Patient found to have a pulse oximetry of 88% with exertion with is consistent with acute hypoxemic respiratory failure. Patient underwent CTA of the chest and was found to have bilobar pulmonary emboli complicated by pleural effusions. Patient also found to have clinical symptoms consistent with CHF decompensation. Patient initiated on therapeutic anticoagulation and admitted to telemetry and initiated on CHF protocol. Cardiology was consulted and the patient underwent IV diuresis and goal directed therapy for her acute heart failure exacerbation. The patient was evaluated by vascular surgery who recommended discontinuation of her oral contraceptive pills and lifelong anticoagulation. The patient was started on Coumadin and is being bridged with subcutaneous Lovenox. The patient was prescribed a LifeVest that is since been delivered to her bedside. The patient was counseled at length about the importance of compliance, the patient expresses understanding. The patient will be discharged home with Coumadin and Lovenox. The patient will follow-up in Coumadin clinic next week. The patient expresses understanding. Disposition: 01 HOME / SELF CARE / HOMELESS Final Discharge Diagnosis (Prints w/discharge instructions): Acute hypoxic respiratory failure, acute on chronic systolic and diastolic heart failure, subsegmental pulmonary emboli, obesity hypoventilation syndrome, polycystic ovarian syndrome, hypocalcemia, obesity. Time spent for discharge: 45 min Core Measure Documentation - Palliative Care Palliative Care/ Comfort Measures: Not Applicable - Core Measures Any of the following diagnoses?: heart failure - Heart Failure Discharge Requirements NATALIA/ARB for LVSD if EF <40%: Yes Beta magali at discharge: Yes Exam - Constitutional Vitals: Temp Pulse Resp BP Pulse Ox 98.0 F 99 H 14 131/90 97 09/06/21 07:30 09/06/21 07:30 09/06/21 07:30 09/06/21 07:30 09/06/21 07:30 General appearance: Present: no acute distress, well-nourished, obese - EENT Eyes: Present: PERRL, EOM intact ENT: hearing intact, clear oral mucosa, dentition normal - Neck Neck: Present: supple, normal ROM - Respiratory Respiratory effort: normal Respiratory: bilateral: CTA - Cardiovascular Rhythm: regular Heart Sounds: Present: S1 & S2 - Extremities Extremities: no ischemia, pulses intact, pulses symmetrical, No edema, normal temperature, normal color, Full ROM Peripheral Pulses: within normal limits - Abdominal General gastrointestinal: Present: soft, non-tender, non-distended, normal bowel sounds Female genitourinary: Present: deferred - Rectal Rectal Exam: deferred - Integumentary Integumentary: Present: clear, warm, dry - Musculoskeletal Musculoskeletal: strength equal bilaterally - Psychiatric Psychiatric: appropriate mood/affect, intact judgment & insight, memory intact, cooperative - Neurologic Neurologic: CNII-XII intact, moves all extremities - Allied Health Allied health notes reviewed: nursing Plan Activity: advance as tolerated Diet: low salt Additional Instructions: 36 YO Female with Obesity Hypoventilation Syndrome, CHF, Pituitary Adenoma, Intracardiac Thrombus, PCOS presents to ED for evaluation. Pt reports " I cannot breathe, I am swollen, and I am coughing". Patient states that she has experienced shortness of breath, dry cough, leg swelling, 15 pound unintentional weight gain over the past 2 weeks, dyspnea on exertion, dyspnea at rest, decreased exercise tolerance, chest discomfort with deep breathing, orthopnea, paroxysmal nocturnal dyspnea. Patient also reports numbness in the left arm over the past 3 weeks. Patient transported to [facility] via private vehicle for further care and evaluation of the aforementioned symptoms. The patient was seen and evaluated in the emergency department. All lab and imaging studies reviewed. Patient found to have a pulse oximetry of 88% with exertion with is consistent with acute hypoxemic respiratory failure. Patient underwent CTA of the chest and was found to have bilobar pulmonary emboli complicated by pleural effusions. Patient also found to have clinical symptoms consistent with CHF decompensation. Patient initiated on therapeutic anticoagulation and admitted to telemetry and initiated on CHF protocol. Cardiology was consulted and the patient underwent IV diuresis and goal directed therapy for her acute heart failure exacerbation. The patient was evaluated by vascular surgery who recommended discontinuation of her oral contraceptive pills and lifelong anticoagulation. The patient was started on Coumadin and is being bridged with subcutaneous Lovenox. The patient was prescribed a LifeVest that is since been delivered to her bedside. The patient was counseled at length about the importance of compliance, the patient expresses understanding. The patient will be discharged home with Coumadin and Lovenox. The patient will follow-up in Coumadin clinic next week. The patient expresses understanding. Care Plan Goals: Patient is medically clear for discharge. Health Concerns: Patient should discontinue oral contraceptive pills. Assessment: 36 YO Female with Obesity Hypoventilation Syndrome, CHF, Pituitary Adenoma, Intracardiac Thrombus, PCOS presents to ED for evaluation. Pt reports " I cannot breathe, I am swollen, and I am coughing". Patient states that she has experienced shortness of breath, dry cough, leg swelling, 15 pound unintentional weight gain over the past 2 weeks, dyspnea on exertion, dyspnea at rest, decreased exercise tolerance, chest discomfort with deep breathing, orthopnea, paroxysmal nocturnal dyspnea. Patient also reports numbness in the left arm over the past 3 weeks. Patient transported to [facility] via private vehicle for further care and evaluation of the aforementioned symptoms. The patient was seen and evaluated in the emergency department. All lab and imaging studies reviewed. Patient found to have a pulse oximetry of 88% with exertion with is consistent with acute hypoxemic respiratory failure. Patient underwent CTA of the chest and was found to have bilobar pulmonary emboli complicated by pleural effusions. Patient also found to have clinical symptoms consistent with CHF decompensation. Patient initiated on therapeutic anticoagulation and admitted to telemetry and initiated on CHF protocol. Cardiology was consulted and the patient underwent IV diuresis and goal directed therapy for her acute heart failure exacerbation. The patient was evaluated by vascular surgery who recommended discontinuation of her oral contraceptive pills and lifelong anticoagulation. The patient was started on Coumadin and is being bridged with subcutaneous Lovenox. The patient was prescribed a LifeVest that is since been delivered to her bedside. The patient was counseled at length about the importance of compliance, the patient expresses understanding. The patient will be discharged home with Coumadin and Lovenox. The patient will follow-up in Coumadin clinic next week. The patient expresses understanding. Follow up with: [facility]Other] - 3-5 Days Prescriptions: Warfarin [Coumadin] 7.5 mg PO DAILY@1700 #30 tablet Enoxaparin 80 mg SUB-Q Q12HR #12 syringe Furosemide [Lasix TAB] 40 mg PO QDAY #30 tablet
--- NOTE | 2021-09-06 11:57 | Progress Note ---
Assessment and Plan Patient 36-year-old female with a past medical history of hypertension, CHF, history of PEs no longer on anticoagulation, and PCOS who presented to the ED with a complaint of left arm numbness and shortness of breath that has been going on since Friday Multiple PEs Acute on chronic HFrEF Hypertension PCOS Echo 09/03/2021-EF 10 to 15% mild diastolic dysfunction is present impaired laxation pattern. LV severely dilated. Right ventricle mild to moderately dilated. Right ventricle systolic function is mildly reduced. Plan: EKG shows sinus tach 120 prolonged QT. No acute ischemic changes. Troponin negative x1. Patient denies any complaints of chest pain. Euvolemic on exam. No cardiac complaints. Denies SOB. Continue Coumadin, carvedilol, valsartan, lasix 40 mg PO qday. INR remains subtherapeutic today; pharmacy to dose coumadin and subQ lovenox for bridging. (Patient states she has been on coumadin in the past) Patient currently wearing [employer]est Vascular recommendations noted. Patient reports that she would like to continue following with normal news editor Cardiac status otherwise stable Patient should follow-up with her primary news editor in 1 to 2 weeks. If patient chooses she may also follow-up with our group in 1 to 2 weeks after discharge Patient seen in conjunction with Dr. Nora Cash who agrees with this plan of care - Patient Problems (1) Acute congestive heart failure Current Visit: Yes Status: Acute (2) Acute hypoxemic respiratory failure Current Visit: Yes Status: Acute (3) Left upper extremity numbness Current Visit: Yes Status: Acute (4) Multiple pulmonary emboli Current Visit: Yes Status: Acute (5) Obesity hypoventilation syndrome Current Visit: Yes Status: Acute Subjective Date of service: 09/06/21 Principal diagnosis: acute on chronic HFrEF, PE Interval history: Patient resting in bed in no acute distress.Patient denies any complaints of chest pain shortness of breath Sinus 90s on monitor with no events Objective Vital Signs Temp Pulse Resp BP Pulse Ox 09/06/21 07:30 98.0 F 99 H 14 131/90 97 09/06/21 03:22 97.9 F 89 16 99/67 98 09/06/21 01:12 98 09/05/21 22:59 98.6 F 95 H 14 92/63 100 09/05/21 20:00 100 H 09/05/21 19:56 95 H 100 09/05/21 19:55 98.1 F 17 92/65 09/05/21 15:41 98.0 F 103 H 18 107/81 100 09/05/21 13:46 97 H 09/05/21 13:45 72 - Physical Examination General: Appears Well, No Apparent Distress HEENT: Positive: Normocephaly, Mucus Membranes Moist Neck: Positive: trachea midline Cardiac: Positive: Reg Rate and Rhythm Lungs: Positive: Normal Breath Sounds Neuro: Positive: Grossly Intact Abdomen: Positive: Unremarkable, Soft Skin: Negative: Rash, Suspicious Lesions, Ulceration Extremities: Present: upper extr. pulses. Absent: edema - Labs and Meds Coagulation 09/06/21 Range/Units 06:16 PT 16.8 H (12.2-14.9) Sec. INR 1.22 H (0.87-1.13) CBC 09/06/21 Range/Units 06:16 WBC 8.4 (4.5-11.0) K/mm3 RBC 4.66 (3.65-5.03) M/mm3 Hgb 11.7 (10.1-14.3) gm/dl Hct 36.4 (30.3-42.9) % Plt Count 350 (140-440) K/mm3 Comprehensive Metabolic Panel 09/06/21 Range/Units 06:16 Sodium 138 (137-145) mmol/L Potassium 3.8 (3.6-5.0) mmol/L Chloride 101.6 (98-107) mmol/L Carbon Dioxide 26 (22-30) mmol/L BUN 15 (7-17) mg/dL Creatinine 0.9 (0.6-1.2) mg/dL Glucose 92 (65-100) mg/dL Calcium 8.6 (8.4-10.2) mg/dL - Imaging and Cardiology EKG: image reviewed Echo: report reviewed - Telemetry EKG Rhythm: Sinus Rhythm - EKG Sinus rhythms and dysrhythmias: sinus rhythm, sinus tachycardia
[2021-09-06 12:17] VITALS: BP 99/73
[2021-09-06] MEDS: VALSARTAN 160MG TAB PO SCH ×2 (12:38→12:43)
[2021-09-06] MEDS: carvediloL 12.5 MG TAB PO SCH (12:38)
[2021-09-06] MEDS: ENOXAPARIN 80 MG/0.8 ML INJ SUB-Q SCH (12:39)
[2021-09-06] MEDS: FUROSEMIDE 40 MG TAB PO SCH (12:39)
[2021-09-06] MEDS: BROMOCRIPTINE 2.5 MG TAB PO SCH (12:52)
[2021-09-06] MEDS ORDERED: WARFARIN 7.5 MG TAB PO NR (17:00)
== END 2021-09-06 16:13 | disposition home or self-care (01) | DRG 175 ==
LOC: ED 23:46 → 4A 09-02 18:14
PROVIDERS: ADMIT Internal Medicine; ATTEND Student in an Organized Health Care Education/Training Program
DX: I26.99 Other pulmonary embolism without acute cor pulmonale (principal); I50.43 Acute on chronic combined systolic (congestive) and diastolic (congestive) heart failure; J96.01 Acute respiratory failure with hypoxia; E66.2 Morbid (severe) obesity with alveolar hypoventilation; E83.51 Hypocalcemia; E28.2 Polycystic ovarian syndrome; Z82.49 Family history of ischemic heart disease and other diseases of the circulatory system; Z68.33 Body mass index [BMI] 33.0-33.9, adult
CPT/HCPCS: 36415; 70450; 71045; 71275; 80048; 80053; 82550; 82553; 82565; 82962; 83735; 83880; 84443; 84484; 84702; 85025; 85027; 85379; 85610; 85670; 85730; 93005; 93306; 96372; 96374; 99291; G0378; C8929; J1650; J1940; Q9967